=== PATIENT | male | born 1965 | race African-American/Black ===

== ENCOUNTER 2016-07-21 06:45 | Inpatient (IN) ==
[2016-07-21] MEDS ORDERED: SODIUM CHLORIDE 0.9% 1,000 ML IV STA (07:40)
[2016-07-21] MEDS ORDERED: cloNIDine 0.1 MG TABLET PO STA (07:40)
[2016-07-21] MEDS ORDERED: cloNIDine 0.1 MG TABLET ONE (07:53)
[2016-07-21 08:38] LABS: Basophils % 0.2 % (0.0-0.8); Hematocrit 42.3 VOL% (42.0-52.0); Hemoglobin 14.9 GM/DL (14.0-18.0); Immature Granulocytes % 0.5 %; Immature Granulocytes Absolute 0.08 #; Lymphocytes # 0.8 10*3/uL (1.4-4.0); Mean Corpuscular HGB Conc 35.2 GM/DL (32-36); Mean Corpuscular Hemoglobin 27 PG (27-34); Mean Corpuscular Volume 75.1 FL (87-102); Mean Platelet Volume 10.8 FL (9.6-12.0); Monocytes # 0.9 10*3/uL (0.11-0.8); Neutrophils # 13.2 10*3/uL (1.4-7.4); Neutrophils % 88.3 % (38.7-73.9); Platelet Count 278 T/CUMM (130-400); Red Blood Count 5.63 MC/CUMM (3.8-5.5); Red Cell Distribution Width 15.1 % (9.3-17.3); White Blood Count 14.9 T/CUMM (4-12)
--- NOTE | 2016-07-21 08:41 | Emergency Department Note ---
Jeison Echeverria Brittany, am scribing for, and in the presence of, Blas Molina Jr., MD 07:41. Jesse Echeverria Marvin Jr., MD, personally performed the services described in this documentation, ascribed by Tiffanie Mchugh in my presence, and it is both accurate and complete 841 . Arrival - Arrival Chief Complaint: Abdominal / Flank Pain ED Nursing Triage Note: C/O LUQ abd pain/N/V/D. Onset Saturday night. Pt reports fever at home also. 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 Mode of Arrival: Stretcher Limitations: No Limitations, Altered Mental Status (Secondary to lethargy from pain medication ) Source: Patient - History of Present Illness HPI Narrative: This will be limited secondary to pt's lethargic state. This is a 50 y/o black male,who presents to the ED by EMS with c/o abd pain which started at 2300 last night. He localizes the pain to the RUQ and LUQ. He describes the pain as "feeling like a rock." He reports he has had N/V/D with the abd pain. He was Dx with acute pancreatitis earlier today. Pt has no other complaints/pain in the ED at this time. PT has a PMHx of HTN. Pt denies a surgical Hx. Pt denies a family medical Hx. Pt is a current every day smoker, drinks a glass of wine every other month, but denies the use of street drugs. Onset (ago): hour(s) (Started at 2300 last night) Consistency: constant Severity: moderate Quality: other (Feels like a rock ) Allergies/Adverse Reactions: Allergies Allergy/AdvReac Type Severity Reaction Status Date / Time No Known Allergies Allergy Unverified 07/21/16 06:49 Home Medications: Home Medications Medication Instructions Recorded Confirmed Type Unable To Obtain [Unable to Obtain] 07/21/16 07/21/16 History Review of System - Review of System 12 point system: reviewed and no additional remarkable complaints except as stated - Review of System Gastrointestinal: Present: abdominal pain, nausea, vomiting, diarrhea Medical,Surgical,& Family Hx - Medical History Cardio: History of: Hypertension Gastrointestinal: History of: Pancreatitis - Social History Smoking Status: Current every day smoker Frequency of Alcohol Use: Rarely Type of Drug Use: None Exam Physical Examination: General: Well-developed well-nourished, no apparent distress. Patient's blood pressure is high. He is slurring his speech and I think this is secondary to the multiple pain medicines that he was given. His blood pressure is high but he has not taken his blood pressure medicine today. Current blood pressure is 215/111 Head: Normocephalic, atraumatic. Eyes: PERRLA, EOMI. Nose: No obvious acute deformities or discharge. Mouth: No obvious acute injury. Neck: Full range of motion without obvious pain. No midline tender to palpation. Lymphatic: no significant lymphadenopathy noted. Lungs: Clear to auscultation bilaterally, normal and equal air movement bilaterally, no obvious rales or wheezing. Heart: regular rate and rhythm, no obvious mummers. Abdomen: Abdomen is tender to palpation epigastric and left side. Skin: No obivous acute lesions noted Musculoskeletal: No gross deformities. Neurological: No focal findings, cranial nerves II through XII grossly normal. Patient appears to be sedated likely secondary to the medication he was given for pain. Psychiatric: Sedate : Deferred Vital Signs: Vital Signs Temperature 97 F L 07/21/16 07:43 Pulse Rate 87 07/21/16 07:43 Respiratory Rate 22 07/21/16 07:43 Blood Pressure 215/111 07/21/16 07:43 O2 Sat by Pulse Oximetry 96 07/21/16 07:41 Course Course Narrative: Acute pancreatitis, review of records from the other hospital shows an abdominal CT showing severe peripancreatic inflammation suggestive of pancreatitis, amylase 4231 serum glucose 206 creatinine 1.5 total bilirubin 2.7 , alkaline phosphatase 117, ALT 312, AST 291, INR 1.01, WBC 18.6, their diagnosis is acute pancreatitis - Reevaluation(s) Reevaluation #1: Discussed with the hospitalist service. They will come evaluate the patient and admit. I told him previous labs that have been done and the labs that have been ordered. Time: 08:36 Results - Labs Lab Results: I have reviewed the patients labs (Patient labs were reviewed from last night from the other hospital. Current labs are in process. These will be reviewed by the admitting doctors.) Disposition Clinical Impression: Acute pancreatitis, Poorly-controlled hypertension, Vomiting, Hyperglycemia, Elevated liver enzymes Case discussed with: patient Disposition: Still a Patient Condition: Stable Time of Disposition: 08:40
[2016-07-21 09:02] LABS: Albumin 3.7 G/DL (3.4-5.0); Bilirubin,Total 3.4 MG/DL (0.2-1.0); Calcium 8.4 MG/DL (8.5-10.1); Osmolality,Calculated 298.7 MOS/KG (273-304); Potassium 3.5 MMOL/L (3.5-5.1)
--- NOTE | 2016-07-21 09:18 | Hospitalist History & Physical ---
<BenningtonEamon virgen - Last Filed: 07/21/16 14:20> Assessment and Plan - Time spent with patient Time spent with patient: Greater than 30 minutes Time spent discussing smoking cessation with patient: more than 10 minutes (1) Acute pancreatitis Status: Acute Current Visit: Yes (2) Elevated liver enzymes Status: Acute Current Visit: Yes (3) Hyperglycemia Status: Acute Current Visit: Yes (4) Poorly-controlled hypertension Status: Acute Current Visit: Yes History of Present Illness Chief complaint: abdominal pain History of present illness: Mr. Cabral is a 50 year old -[place] male with a history significant for hypertension who reports to the ED as a transfer from [facility] with diffuse abdominal pain since midnight. The patient was seen at [facility] this morning for complaints of abdominal pain. CT there showed inflammation suggestive of pancreatitis. Amylase is greater than 4000 liver enzymes were elevated and white blood count of 18,000. The patient was transferred here for treatment. On admission patient's blood pressure was 240/124. Patient was given clonidine and fluids. It is of note that the patient is slurring his speech slightly. Patient reports the pain "came on all of a sudden" around midnight, and he vomited 2-3 times before arriving at the [facility] ER. On exam, the patient is in moderate pain lying on his right side. He states the pain is primarily in the left lower quadrant and reproducible to palpation. The patient also has reproducible pain in the epigastric region to palpation. He denies alcohol use and does not report a history of hyperlipidemia or hypertriglyceridemia. Patient states that he has never had any gallbladder issues. Patient denies chest pain, shortness of breath, headache. The patient is followed by nurse practitioner Heena Sainz in [place] for his hypertension. He reports that he takes atenolol 200 mg daily, lisinopril 40 mg daily, hydrochlorothiazide 25 mg daily, low-dose aspirin , Flomax for BPH. The patient will be admitted to the hospital medicine team for further evaluation and treatment. Home Medications Medication Instructions Recorded Confirmed Type Aspirin [Ecotrin] 81 mg PO DAILY 07/21/16 07/21/16 History Atenolol [Tenormin] 200 mg PO DAILY 07/21/16 07/21/16 History Lisinopril [Zestril] 40 mg PO DAILY 07/21/16 07/21/16 History Tamsulosin [Flomax] 0.4 mg PO DAILY 07/21/16 07/21/16 History hydroCHLOROthiazide 25 mg PO DAILY 07/21/16 07/21/16 History [Hydrochlorothiazide] Allergies Allergy/AdvReac Type Severity Reaction Status Date / Time No Known Allergies Allergy Unverified 07/21/16 06:49 Medical,Surgical,& Family Hx - Medical History Cardio: History of: Hypertension Genitourinary: History of: Prostate Problems Gastrointestinal: History of: Pancreatitis - Social History Smoking Status: Current every day smoker Frequency of Alcohol Use: Rarely Type of Drug Use: None - Constitutional Constitutional: Absent: daytime sleepiness, headache(s), stops breathing during sleep, weakness - EENT Eyes: Absent: blurry vision, loss of vision Ears: Absent: decreased hearing, ear pain Nose, mouth and throat: Absent: dysphagia, epistaxis, headache(s), neck pain, sore throat - Cardiovascular Cardiovascular: Absent: chest pain at rest, dyspnea, edema, lightheadedness, palpitations - Respiratory Respiratory: Absent: cough, dyspnea, hemoptysis, wheezing - Gastrointestinal Gastrointestinal: Present: abdominal pain, nausea, vomiting. Absent: constipation - Genitourinary Genitourinary: Absent: difficulty urinating, flank pain - Neurological Neurological: Present: abnormal speech (slurred speech). Absent: abnormal gait - Psychiatric Psychiatric: Absent: anxiety, confusion - Endocrine Endocrine: Absent: cold intolerance, fatigue, polyuria - Hematologic/Lymphatic Hematologic/Lymphatic: Absent: easy bleeding, easy bruising Exam - Constitutional Vitals: Period Temp Pulse Resp BP Sys/Guaman Pulse Ox Last 24 Hr 97 F-97.0 F 87-91 22-22 215-244/111-124 94-96 Exam: General appearance: normal weight, no acute distress - Head Head exam: Present: normocephalic, atraumatic - Eye Eye exam: Present: EOMI. Absent: conjunctival injection, nystagmus Pupils: Present: BENSON, normal accommodation - ENT ENT exam: Present: normal exam, normal external ear exam - Neck Neck exam: Present: normal inspection. Absent: lymphadenopathy, tenderness, thyromegaly - Respiratory Respiratory exam: Present: clear to auscultation bilaterally. Absent: rales, rhonchi, wheezes - Cardiovascular Cardiovascular exam: Present: regular rate and rhythm. Absent: carotid bruit, gallop, rubs - GI/Abdominal GI/Abdominal exam: Present: normal bowel sounds, epigastric tenderness to palpation, LLQ tenderness to palpation Absent: ascites, distended, mass - Extremities Exam Extremities exam: Present: normal inspection, normal capillary refill. Absent: edema - Back Exam Back exam: Absent: CVA tenderness (L), CVA tenderness (R) - Neurological Exam Neurological exam: Present: alert, oriented X3 - Psychiatric Psychiatric exam: Present: normal affect, normal mood - Skin Skin exam: Present: normal color, warm, dry Results - Labs CBC & BMP: 07/21/16 08:35 07/21/16 08:35 Lab Results: I have reviewed the past 24 hour labs <Jaimee Dillard - Last Filed: 07/21/16 14:58> Assessment and Plan (1) Acute pancreatitis Status: Acute Assessment and plan: hold thiazide and lipid profile in am, morphine 2 mg IV, zofran IV Current Visit: Yes (2) Poorly-controlled hypertension Status: Acute Assessment and plan: cardene drip IV Current Visit: Yes (3) Vomiting Status: Acute Assessment and plan: prn zofran Current Visit: Yes (4) Hyperglycemia Status: Acute Assessment and plan: lantus 15 units, hgb a1c, diabetic education Current Visit: Yes (5) Elevated liver enzymes Status: Acute Assessment and plan: due to pancreatitis will monitor Current Visit: Yes History of Present Illness History of present illness: Mr. Cabral is a 50 year old male seen and examined. History and physical reviewed and edited. Spoke with Dr Contreras as I was concerned about gallstone pancreatitis and ordered a stat ct without contrast. Dr. Contreras saw him and reviewed his ct and assured me this was just bad pancreatitis due to the thiazide he was on. While check his lipid profile in am. Medical,Surgical,& Family Hx - Surgical History Additional Surgical History: none - Family History Additional Family History: healthy - Social History Marital Status: Single Lives With:: Alone Functional capacity: independent ambulation Exam - Constitutional Vitals: Period Temp Pulse Resp BP Sys/Guaman Pulse Ox Last 24 Hr 98.7 F 83-112 22-25 169-238/101-133 93-98 Results - Labs CBC & BMP: 07/21/16 08:35 07/21/16 08:35 - Diagnostic Findings Procedure: CT Abdomen and Pelvis: report reviewed by me (pancreatitis, no dilation of bile duct )
[2016-07-21] MEDS ORDERED: MORPHINE 2 MG/1 ML SYRINGE IV PRN (09:58)
[2016-07-21] MEDS ORDERED: ONDANSETRON 4 MG/2 ML VIAL IV PRN (09:58)
[2016-07-21] MEDS ORDERED: SODIUM CHLORIDE 0.9% 1,000 ML IV SCH (10:00)
[2016-07-21 10:28] LABS: Triglycerides 63 MG/DL (2-150)
[2016-07-21 11:13] LABS: Lactic Acid 4.5 MMOL/L (0.4-2.0)
[2016-07-21] MEDS ORDERED: NICARDIPINE IV SCH (11:32)
[2016-07-21] MEDS ORDERED: niCARdipine 25 MG/10 ML VIAL IV ONE (11:55)
[2016-07-21] MEDS: SODIUM CHLORIDE 0.45% 1,000 ML IV SCH ×2 (12:19→19:18)
--- NOTE | 2016-07-21 12:27 | Gastrointestinal Consult Note ---
Assessment and Plan - Time spent with patient Time spent with patient: Greater than 30 minutes (1) Acute pancreatitis Status: Acute Current Visit: Yes (2) Elevated liver enzymes Status: Acute Current Visit: Yes (3) Other specified counseling Status: Acute Current Visit: Yes History of Present Illness History of present illness: Mr. Cabral is a 50 year old male Home Medications Medication Instructions Recorded Confirmed Type Aspirin [Ecotrin] 81 mg PO DAILY 07/21/16 07/21/16 History Atenolol [Tenormin] 200 mg PO DAILY 07/21/16 07/21/16 History Lisinopril [Zestril] 40 mg PO DAILY 07/21/16 07/21/16 History Tamsulosin [Flomax] 0.4 mg PO DAILY 07/21/16 07/21/16 History hydroCHLOROthiazide 25 mg PO DAILY 07/21/16 07/21/16 History [Hydrochlorothiazide] Allergies Allergy/AdvReac Type Severity Reaction Status Date / Time No Known Allergies Allergy Unverified 07/21/16 06:49 Medical,Surgical,& Family Hx - Medical History Cardio: History of: Hypertension Genitourinary: History of: Prostate Problems Gastrointestinal: History of: Pancreatitis - Social History Smoking Status: Current every day smoker Frequency of Alcohol Use: Rarely Type of Drug Use: None Results - Labs CBC & BMP: 07/21/16 08:35 07/21/16 08:35 Note Addendum: PLEASE NOTE -- automatic citation of patient information is unavoidable in this electronic note. I have made a reasonable effort to review the information cited , but it is not a part of my evaluation, impression, or recommendation unless specifically discussed in the dictated text that follows. As well, voice recognition software was used in the creation of this clinical note. Reasonable effort was made to identify and correct gross errors. Despite proofreading, errors in design center consultant may be present, including nonsense verbiage at times. If you encounter such an error, please contact me at [phone] for discussion and correction. -- Diane Chief complaint: abdominal pain History of present illness: This is a new patient, a 50-year-old male seen by consultation for evaluation of suspected biliary pancreatitis. The patient is admitted to the hospitalist service under the care of Dr. Dillard with a primary diagnosis of acute pancreatitis. Patient was brought to our hospital by ambulance from [facility] overnight with a primary complaint of severe diffuse abdominal pain since late last evening. Initial diagnosis of pancreatitis was made with elevated amylase, lipase, and liver associated enzymes. As well, the patient's blood pressure has been difficult to control. He reports subacute onset of abdominal pain over two days, primarily LLQ but also involving epigastrium. He notes no EtOH or other substance abuse, no med changes, no dietary changes, no trauma, no history of familial tryglyceridemia or familial pancreatitis, and no recent infection. He reports no prior history of pancreatitis. Since admission he has been treated appropriately with bowel reset, resuscitation, and analgesia and reports minimal improvement in symptoms. He is comfortable enough to sleep currently. Patient denies fever, chills, night sweats, rigors, headache, dizziness, neck pain, visual changes, redness of the eyes, dysphagia, odynophagia, difficulty chewing, chest pain, shortness of breath, weight loss, regurgitation, hematemesis, hematochezia, melena, proctalgia, constipation, change in bowel pattern generally, dysuria, skin changes, temperature regulation issues, flushing, easy bleeding/bruising, musculoskeletal pain, mental status change, numbness/weakness in the extremities, yellowing of the eyes/skin, cutaneous eruptions, allergies to food or drug, family history of gastrointestinal cancer and colon polyps, and other complaints in general. Review of systems: 12 point review of systems was negative except as documented above. Outpatient medications: atenolol, or hydrochlorothiazide, lisinopril, aspirin, Flomax Inpatient medications: Meropenam, 1/2NS infusion, nifedipine drip, Zofran, Protonix Past Medical History: hypertension, prostate problems, pancreatitis Social history: positive tobacco. Rare alcohol Family history: [No gastrointestinal cancers] Physical examination: Vital Signs: Current vital signs reviewed and documented above. General Appearance: Lying in bed, comfortable, without distress. Head: Normocephalic. Neck: Palpation of the neck revealed no abnormalities. Eyes: No scleral icterus. No scleral injection. No conjunctival pallor. Oral Cavity: Odor of breath was normal. No drooling was observed. Lips showed no abnormalities. Floor of the mouth showed no abnormalities. Pharynx: Oropharynx was normal. Lungs: Respiration rhythm and depth was normal. Cardiovascular: Heart rate and rhythm were normal. No murmurs were appreciated. Abdomen: Abdomen was not distended. Abdominal palpation revealed mimimal tenderness and no hepatosplenomegaly. Ascites was not discovered. Abdominal auscultation revealed positive bowel sounds. Musculoskeletal System: Musculoskeletal system was grossly normal. Neurological: Level of consciousness was normal. Speech was normal. Skin: General appearance was normal. Color and pigmentation were normal. No skin lesions. Laboratory: white blood count 14.9, hemoglobin 14 point, hematocrit 42.3, platelets 278, ALT 286, AST 235, total bilirubin 3.4, alkaline phosphatase 114, lactic acid 4.5, albumin 3.7, lipase 6600, triglyceride 63, BUN 14, creatinine 1.6 Radiology: CT scan taken at outside hospital reveals extensive inflammatory change involving the pancreas without clear pancreatic ductal dilation, normal appearing liver, normal appearing gallbladder, and normal appearing intra-and extrahepatic bile ducts Impressions: 1. Acute pancreatitis, interstitial edematous type, mild/moderate -- the differential etiology includes medication or other unidentified substance, biliary obstruction, surreptitious alcohol, anatomic anomaly, and previously unidentified genetic predisposition. The patient does have elevated bilirubin and liver associated enzymes but is only at intermediate risk for choledocholithiasis with current findings. More likely, hyperbilirubinemia and transaminitis is a consequence of mod/severe pancreatic inflammation. At present there is not evidence of pancreatic necrosis or clear evidence of organ failure though SCr is elevated. I recommend aggressive volume resuscitation, pain control as indicated, and complete bowel rest. Antibiotic is at your discretion. ERCP is not indicated at present. 2. Elevated liver associated enzymes -- likely related to underlying pancreatitis. No clear evidence of cholelithiasis or choledocholithiasis at present. Continue to monitor as pancreatitis progresses. 2. Other specified counseling: The patient was seen for [greater than 30 minutes]. The patient was counseled for greater than 50% of this time regarding differential diagnosis, likely diagnosis, diagnostic and therapeutic alternatives, risks/benefits/alternatives of medications and procedures, and plan of care generally. The patient expressed understanding and wishes to proceed. Recommendations: -- aggressive resuscitation -- analgesia as indicated -- complete bowel rest -- antibiotic at your discretion -- minimize medications to the greatest extent possible with particular attention to hydrochlorothiazide -- consider contrast enhanced CT if patient does not improve clinically -- monitor liver associated enzymes -- ERCP is not indicated at present -- thank you for this consultation. We will follow with you.
--- NOTE | 2016-07-21 13:11 | CT Report ---
History: Gallstone pancreatitis Date: 07/21/2016 Study: CT abdomen and pelvis without contrast Comparison exam: Outside CT from [facility] Technique: Spiral CT sections were obtained from the lung bases to the pubic symphysis without contrast. Total DLP measures 1495.8 mGy*cm. CT abdomen: There is increasing strandy atelectatic change in the lower lobes. There is no evidence of pneumoperitoneum. There is diffuse pancreatic enlargement with strandy and hazy inflammatory change in the peripancreatic fat. There is some moderately increased free fluid in the right and left anterior pararenal spaces with extension of fluid into either paracolic gutter. There is no pseudocyst. The liver, bile ducts, spleen, adrenal glands, and kidneys are grossly unremarkable in noncontrast CT appearance. There is mild gallbladder wall thickening. There is no gross calcific density gallstone. There is no aneurysm of the moderately calcified abdominal aorta. The appendix is normal. There is no cathleen bowel obstruction. There is a small periumbilical hernia containing fat. There is degenerative disc disease at L4-L5 and L5-S1 with vacuum disc phenomena. CT pelvis: There is no pelvic soft tissue mass or abnormal pelvic fluid. There is a small left inguinal hernia containing only fat. Impression: Acute pancreatitis with worsening changes compared to the previous study from earlier 07/21/2016 Nonspecific gallbladder wall thickening, though no cathleen calcific density gallstones PROCEDURE INTERPRETED AT [facility] DEPARTMENT OF RADIOLOGY Final Report Signed by: Dr. Gricelda Kirby
[2016-07-21] MEDS: MEROPENEM 1,000 MG in SODIUM CHLORIDE 0.9% 100 ML IV SCH ×2 (13:57→20:04)
[2016-07-21] MEDS: niCARdipine INJ 50 MG in SODIUM CHLORIDE 0.9% 480 ML IV SCH ×3 (14:19→22:43)
[2016-07-21 14:33] LABS: Barbiturates Screen,Urine Negative (Negative); Benzodiazepines Screen,Urine Negative (Negative); Cannabinoid Screen,Urine Negative (Negative); Opiate Screen,Urine Positive (Negative); Phencyclidine Screen,Urine Negative (Negative)
[2016-07-21] MEDS: INSULIN GLARGINE 100 UNIT/ML SUBCUT SCH (16:02)
[2016-07-21] MEDS: INSULIN REGULAR 100 UNIT/ML SUBCUT SCH (21:45)
[2016-07-22] MEDS: SODIUM CHLORIDE 0.45% 1,000 ML IV SCH ×5 (02:46→20:53)
[2016-07-22] MEDS: MEROPENEM 1,000 MG in SODIUM CHLORIDE 0.9% 100 ML IV SCH ×3 (04:36→21:06)
[2016-07-22 04:41] LABS: Basophils % 0.1 % (0.0-0.8); Hematocrit 43.5 VOL% (42.0-52.0); Hemoglobin 15.3 GM/DL (14.0-18.0); Immature Granulocytes % 0.7 %; Immature Granulocytes Absolute 0.16 #; Lymphocytes # 1.4 10*3/uL (1.4-4.0); Lymphocytes % 6.2 % (21.2-54.2); Mean Corpuscular HGB Conc 35.2 GM/DL (32-36); Mean Corpuscular Hemoglobin 26 PG (27-34); Mean Corpuscular Volume 74.2 FL (87-102); Mean Platelet Volume 11.2 FL (9.6-12.0); Monocytes # 1.6 10*3/uL (0.11-0.8); Monocytes % 6.8 % (1.7-12.7); Neutrophils # 19.5 10*3/uL (1.4-7.4); Neutrophils % 86.2 % (38.7-73.9); Platelet Count 236 T/CUMM (130-400); Red Blood Count 5.86 MC/CUMM (3.8-5.5); White Blood Count 22.7 T/CUMM (4-12)
[2016-07-22 05:13] LABS: Albumin 3.3 G/DL (3.4-5.0); Bilirubin,Total 5.9 MG/DL (0.2-1.0); Calcium 7.6 MG/DL (8.5-10.1); Osmolality,Calculated 300.8 MOS/KG (273-304); Potassium 4.5 MMOL/L (3.5-5.1); Total Protein 6.2 G/DL (6.4-8.3)
[2016-07-22 06:11] LABS: Risk Ratio 3.37
[2016-07-22 06:53] LABS: Band Neutrophils 1 % (0-10); Hypochromasia 1+; Lymphocytes 7 % (20-55); Platelet Estimate Adequate; Segmented Neutrophils 82 % (50-85); Total Cells Counted 100
[2016-07-22] MEDS: INSULIN REGULAR 100 UNIT/ML SUBCUT SCH ×6 (07:19→21:06)
--- NOTE | 2016-07-22 08:02 | Gastrointestinal Progress Note ---
Assessment and Plan - Time spent with patient Time spent with patient: Greater than 30 minutes (1) Acute pancreatitis Status: Acute Current Visit: Yes (2) Elevated liver enzymes Status: Acute Current Visit: Yes (3) Other specified counseling Status: Acute Current Visit: Yes Exam (Progress Note) - Constitutional Vitals: Period Temp Pulse Resp BP Sys/Guaman Pulse Ox Last 24 Hr 97.1 F-98.7 F 83-115 20-32 114-238/43-137 90-98 Results - Labs CBC & BMP: 07/22/16 04:17 07/22/16 04:17 Note Addendum: PLEASE NOTE -- automatic citation of patient information is unavoidable in this electronic note. I have made a reasonable effort to review the information cited , but it is not a part of my evaluation, impression, or recommendation unless specifically discussed in the dictated text that follows. As well, voice recognition software was used in the creation of this clinical note. Reasonable effort was made to identify and correct gross errors. Despite proofreading, errors in radio journalist may be present, including nonsense verbiage at times. If you encounter such an error, please contact me at for discussion and correction. -- Diane Chief complaint: abdominal pain History of present illness: the patient is a 50-year-old male seen for follow- up of acute pancreatitis. He reports feeling some better overnight. He is not having abdominal pain at present and has not required pain medication at all overnight. He is taking some iced chips because his mouth is dry but has not developed an appetite yet. Review of systems: 12 point review of systems was negative except as documented above. Inpatient medications: Lantus, Meropenem, morphine sulfate, nicardipine, Zofran , Protonix, 1/2NS infusion Physical examination: Vital Signs: Current vital signs reviewed and documented above. General Appearance: the patient is lying in bed, comfortable, and in no acute distress. Head: Normocephalic. Neck: Palpation of the neck revealed no abnormalities. Eyes: Positive scleral icterus. No scleral injection. No conjunctival pallor. Oral Cavity: Odor of breath was normal. No drooling was observed. Lips showed no abnormalities. Floor of the mouth showed no abnormalities. Pharynx: Oropharynx was normal. Lungs: Respiration rhythm and depth was normal. Cardiovascular: Heart rate and rhythm were normal. No murmurs were appreciated. Abdomen: abdomen was not distended. Abdominal palpation revealed no tenderness and no hepatosplenomegaly. Ascites was not discovered. Abdominal auscultation revealed positive bowel sounds. Musculoskeletal System: Musculoskeletal system was grossly normal. Neurological: level of consciousness was normal. Speech was normal. Skin: General appearance was normal. Color and pigmentation were normal. No skin lesions. Laboratory: white blood count 22.7, hemoglobin 15.3, hematocrit 43.5, platelets 236, ALT 200, AST 120, total bilirubin 5.9, alkaline phosphatase 107, albumin 3.3, lipase 4800 Radiology: CT scan taken at our institution confirms evidence of acute pancreatitis with no clear evidence of cholelithiasis or choledocholithiasis Impressions: 1. Acute pancreatitis -- transaminases and lipase have improved overnight but bilirubin is climbing. This is consistent with acute insults and most likely related to significant inflammatory change at the head of the pancreas. There is not clear radiologic evidence of choledocholithiasis and ERCP is not indicated at present. I recommend a right upper quadrant ultrasound to ensure no evidence of radio Lucent stones in the gallbladder or common bile duct. Otherwise, continued supportive care is most reasonable. 2. Elevated liver associated enzymes -- likely related to underlying pancreatitis. No clear evidence of cholelithiasis or choledocholithiasis at present. I recommend a right upper quadrant ultrasound as discussed above. 3. Other specified counseling: The patient was seen for greater than 30 minutes. The patient was counseled for greater than 50% of this time regarding differential diagnosis, likely diagnosis, diagnostic and therapeutic alternatives, risks/benefits/alternatives of medications and procedures, and plan of care generally. The patient expressed understanding and wishes to proceed. Recommendations: -- aggressive resuscitation -- analgesia as indicated -- complete bowel rest -- antibiotic at your discretion -- minimize medications to the greatest extent possible with particular attention to hydrochlorothiazide -- right upper quadrant ultrasound -- monitor liver associated enzymes -- ERCP is not indicated at present -- thank you for this consultation. Dr. Kirby will assume G.I. care for this patient tomorrow.
[2016-07-22] MEDS: PANTOPRAZOLE 40 MG VIAL IV SCH (08:45)
[2016-07-22] MEDS: INSULIN GLARGINE 100 UNIT/ML SUBCUT SCH (08:46)
--- NOTE | 2016-07-22 09:57 | Ultrasound Report ---
History: Acute pancreatitis. Elevated bilirubin level Date: 07/22/2016 Study: Gallbladder ultrasound Comparison exam: No previous Real-time ultrasound images are captured and archived. Numerous highly echogenic foci with posterior acoustic shadowing compatible with gallstones fill the lumen of the gallbladder. There is gallbladder wall thickening at 4 mm. The common bile duct is ectatic at 8 mm. No choledochal stone is seen, though the distal common bile duct and head of the pancreas are largely obscured by bowel gas. There is no focal hepatic mass. The right kidney measures 10.3 cm length and is otherwise normal. Impression: Cholelithiasis. Ectasia of the common bile duct. No choledochal stone is seen, though the distal common bile duct and head of the pancreas are obscured by bowel gas. PROCEDURE INTERPRETED AT [facility] DEPARTMENT OF RADIOLOGY Final Report Signed by: Dr. Gricelda Kirby
[2016-07-22] MEDS: CARVEDILOL 25 MG TABLET PO SCH ×2 (10:35→16:35)
[2016-07-22] MEDS: niCARdipine INJ 50 MG in SODIUM CHLORIDE 0.9% 480 ML IV SCH ×2 (11:56→19:19)
--- NOTE | 2016-07-22 12:37 | Hospitalist Progress Note ---
Assessment and Plan (1) Acute pancreatitis Status: Acute Assessment and plan: hold thiazide, lipid profile shows a normal triglyceride, morphine 2 mg IV, zofran IV, clear liquids today Current Visit: Yes (2) Poorly-controlled hypertension Status: Acute Assessment and plan: cardene drip IV off, Coreg 25 mg p.o. twice daily Current Visit: Yes (3) Vomiting Status: Acute Assessment and plan: Resolved prn zofran Current Visit: Yes (4) Hyperglycemia Status: Acute Assessment and plan: Diabetic education pending, hemoglobin A1c only 5.6, increase insulin. Current Visit: Yes (5) Elevated liver enzymes Status: Acute Assessment and plan: Improving, continue to monitor Current Visit: Yes (6) Ileus Status: Acute Assessment and plan: Most likely due to the pancreatitis. Current Visit: Yes Hospitalist: Subjective Interval history: Patient is feeling better today and really wants to have something to eat. I am to start him on clear liquids. His lipase is better today. I need to start giving him oral blood pressure medicines. His Cardene drip was off when I came in. Exam - Constitutional Vitals: Period Temp Pulse Resp BP Sys/Guaman Pulse Ox Last 24 Hr 97.1 F-98.7 F 102-115 20-38 114-196/43-121 90-94 Exam: Heart Rate-[RRR] Lungs-[CTAB] GI-[diminished soft, tender] Ext-[trace edema] Neuro [Motor 5/5], [alert and oriented times 3] psych [normal mood and affect] General [no acute distress] Results - Labs CBC & BMP: 07/22/16 04:17 07/22/16 04:17 Lab Results: I have reviewed the past 24 hour labs Labs: Urine drug screen positive for opiates. Lipase today is 4820. Blood sugars are still elevated. - Diagnostic Findings Procedure: Ultrasound: report reviewed by me (Gallbladder ultrasound shows cholelithiasis)
[2016-07-23] MEDS: INSULIN REGULAR 100 UNIT/ML SUBCUT SCH ×9 (00:36→23:41)
[2016-07-23] MEDS: SODIUM CHLORIDE 0.45% 1,000 ML IV SCH ×3 (01:56→21:35)
[2016-07-23] MEDS: MEROPENEM 1,000 MG in SODIUM CHLORIDE 0.9% 100 ML IV SCH ×3 (04:00→21:34)
[2016-07-23 05:44] LABS: Basophils # 0.1 10*3/uL (0.0-0.2); Basophils % 0.2 % (0.0-0.8); Hematocrit 43.6 VOL% (42.0-52.0); Hemoglobin 15.3 GM/DL (14.0-18.0); Immature Granulocytes % 1.2 %; Immature Granulocytes Absolute 0.33 #; Lymphocytes # 2.8 10*3/uL (1.4-4.0); Lymphocytes % 10.2 % (21.2-54.2); Mean Corpuscular HGB Conc 35.1 GM/DL (32-36); Mean Corpuscular Hemoglobin 26 PG (27-34); Mean Corpuscular Volume 75.3 FL (87-102); Mean Platelet Volume 11.5 FL (9.6-12.0); Monocytes # 1.8 10*3/uL (0.11-0.8); Monocytes % 6.4 % (1.7-12.7); Neutrophils # 22.8 10*3/uL (1.4-7.4); Platelet Count 257 T/CUMM (130-400); Red Blood Count 5.79 MC/CUMM (3.8-5.5); Red Cell Distribution Width 15.3 % (9.3-17.3); White Blood Count 27.8 T/CUMM (4-12)
[2016-07-23 06:11] LABS: Band Neutrophils 2 % (0-10); Hypochromasia Slight; Lymphocytes 12 % (20-55); Platelet Estimate Adequate; Segmented Neutrophils 84 % (50-85); Total Cells Counted 100
[2016-07-23 06:13] LABS: Albumin 3.3 G/DL (3.4-5.0); Calcium 7.8 MG/DL (8.5-10.1); Osmolality,Calculated 299.1 MOS/KG (273-304); Potassium 4.3 MMOL/L (3.5-5.1); Total Protein 6.6 G/DL (6.4-8.3)
[2016-07-23] MEDS: PANTOPRAZOLE 40 MG VIAL IV SCH (08:16)
[2016-07-23] MEDS: INSULIN GLARGINE 100 UNIT/ML SUBCUT SCH (08:17)
[2016-07-23] MEDS: CARVEDILOL 25 MG TABLET PO SCH ×2 (08:17→16:50)
--- NOTE | 2016-07-23 08:17 | Physician Query Form ---
CLICK EDIT DOCUMENT TO SELECT QUERY ANSWER --> OK --> SIGN Kristan Maguire RN, CCDS Certified Clinical [employer]icer [employer] W) [phone] (f) [phone] [email or web address] PROVIDERS: Make your selection(s) from the choices in EACH section by typing an "x" and enter comments in the comment section. Please use your independent medical judgment in providing your response. This request does not imply that any particular answer is desired or expected. CLINICAL INDICATORS: (Providers should not edit this section) The medical record indicates that the patient was admitted with acute pancreatitis, Respirations of 22 on the 18th (on 2 liters of oxygen per NC), on the respirations of 45 and the oxygen is on 3 liters. If possible, please further clarify the type and acuity of respiratory diagnosis : ACUITY: ( ) Acute ( ) Chronic ( x) Acute on Chronic TYPE: (x ) Respiratory failure with hypoxia (x ) Respiratory failure with hypercapnia ( ) Respiratory Arrest ( ) Postprocedural/postoperative respiratory failure ( ) Respiratory Insufficiency ( ) ARDS (Adult/Acute Respiratory Distress Syndrome) ( ) Other, please specify: ( ) Clinically unable to determine Recognized criteria for respiratory failure PH <7.35 or >7.45 PO2 <60 PCO2 >50 RR >24 O2 Sat <90% on RA or <95% on O2 Use of accessory muscles Unable to speak in full sentences Intubation is not required COMMENTS: Use of terms such as suspected, likely, or probable (associated with a specific diagnosis that is being evaluated, monitored, or treated as if it exists) are acceptable and can be restated in the discharge summary if not ruled out. MTDD
--- NOTE | 2016-07-23 08:18 | Physician Query Form ---
CLICK EDIT DOCUMENT TO SELECT QUERY ANSWER --> OK --> SIGN Kristan Maguire RN, CCDS Certified Clinical Regional Guide W) [phone] (f) [phone] [email or web address] PROVIDERS: Make your selection(s) from the choices in EACH section by typing an "x" and enter comments in the comment section. Please use your independent medical judgment in providing your response. This request does not imply that any particular answer is desired or expected. CLINICAL INDICATORS: (Providers should not edit this section) The medial record indicates that the patient was admitted with acute pancreatitis, Respirations on the : 36-45, Pulse of 99-102, WBC of 27.8#, Lactic Acid of 4.5 on the , and the patient is being treated with IVF's / Pain medicines. Based on the above, could you clarify the appropriate diagnosis, if significant , that supports the above abnormalities and additional evaluation, monitoring, and/or treatment rendered: ( ) Acute pancreatitis without SIR's (x ) Acute pancreatitis with SIR's ( ) Other, please specify: ( ) Clinically unable to determine COMMENTS: Use of terms such as suspected, likely, or probable (associated with a specific diagnosis that is being evaluated, monitored, or treated as if it exists) are acceptable and can be restated in the discharge summary if not ruled out. MTDD
[2016-07-23 08:53] LABS: ABG Base Excess 0.3 MMOL/L (-2.5-2.5); ABG HCO3 21.9 MMOL/L (20-26); ABG Oxygen Saturation 91.6 % (95-100); ABG PCO2 28.3 MM HG (35-48); ABG PH 7.507 (7.35-7.45); ABG PO2 61.4 MM HG (80-95); ABG TCO2 22.8 MMOL/L (23-27)
[2016-07-23] MEDS: hydrALAZINE 20 MG/1 ML VIAL IV PRN (09:08)
--- NOTE | 2016-07-23 10:19 | Hospitalist Progress Note ---
Assessment and Plan (1) Leukocytosis Status: Acute Assessment and plan: 1)acute pancreatitis- lipase coming down, liver enzymes improved also and his vomiting and pain have resolved. His belly remais deistended and tympanic, some flatus. GI has seen him. Gallbladder US shows many gallstones- suspect gallstone pancreatitis. Consider surgery consult when resp status improved. 2)leukocytosis- rising each day since admission, no positive cultures. on merrem. afebrile. 3)HTN- not well controlled. add hydralazine IV prn to his usual orals and see how he does. GIve lasix. 4)resp alkalosis from hyperventilating- chest CT to eval for cause of deviation of trachea- ?mass. could also be due to his aorta. pulmonary consult. R/O PE also. LE doppler. 5)pulmonary edema- lasix, monitor- echo also pending. Current Visit: Yes (2) Tracheal deviation Status: Acute Current Visit: Yes (3) Pulmonary edema cardiac cause Status: Acute Current Visit: Yes (4) Acute pancreatitis Status: Acute Current Visit: Yes (5) Poorly-controlled hypertension Status: Acute Current Visit: Yes (6) Hyperglycemia Status: Acute Current Visit: Yes (7) Elevated liver enzymes Status: Acute Current Visit: Yes (8) Ileus Status: Acute Current Visit: Yes Hospitalist: Subjective Interval history: Mr Cabral is still short of breath. It started about a month ago, particularly id he bent to pick something up. Now it is continuous since admission for pancreatitis. He denies abdominal pain, but does not have appetite and has only had some clears to drink. He has had some flatus, no BM. GI saw him over the weekend. He is hyperventilating, and has a pH of 7.5. trachea deviated on CXR with some infiltrate in bilateral bases and left calf slightly larger than right. He is a smoker but has never been diagnosed with COPD or required inhalers. BP remains elevated- he has been off Cardene for a while. Exam - Constitutional Vitals: Period Temp Pulse Resp BP Sys/Guaman Pulse Ox Last 24 Hr 96.7 F-98.7 F 98-108 26-45 131-197/23-134 90-94 General appearance: mild distress (tachypnic, but otherwise comfortable. Breathes best lying flat), morbidly obese - Head Head exam: Present: normocephalic, atraumatic - Eye Eye exam: Present: EOMI. Absent: scleral icterus - ENT ENT exam: Present: normal oropharynx - Respiratory Respiratory exam: Present: clear to auscultation bilaterally (no wheezes, stridor, rales. quick shallow breaths) - Cardiovascular Cardiovascular exam: Present: regular rate and rhythm, tachycardia - GI/Abdominal GI/Abdominal exam: Present: distended (tympanic), hypoactive bowel sounds. Absent: tenderness - Extremities Exam Extremities exam: Present: edema (1+ at left ankle none on right.) - Neurological Exam Neurological exam: Present: alert, oriented X3 - Psychiatric Psychiatric exam: Present: normal affect - Skin Skin exam: Present: warm, dry Results - Labs CBC & BMP: 07/23/16 05:22 07/23/16 05:22 Lab Results: I have reviewed the past 24 hour labs
--- NOTE | 2016-07-23 10:19 | XRay Report ---
Portable chest Date: 07/23/2016 Clinical history: Soreness of breath Comparison: None Technique: Portable AP sitting chest Findings: The heart is moderately enlarged with prominent pulmonary vasculature. Diffuse parenchymal findings are noted with small bilateral pleural effusions effusions. Deviation of the trachea to the right at the level of the aortic knob. No acute osseous findings are noted. Impression: Moderate cardiomegaly with findings as can be seen with moderate CHF with small pleural effusions. Additional atelectasis/infiltration at the lung base. Deviation of the trachea which could be related to dilatation of the aorta, adenopathy, mediastinal mass, poor inspiration, etc. CT chest with contrast may be helpful for further evaluation as discussed with Dr. Shrestha at 10:15 AM on 07/23/2016. PROCEDURE INTERPRETED AT [facility] DEPARTMENT OF RADIOLOGY Final Report Signed by: Dr. Laly López
--- NOTE | 2016-07-23 11:59 | Pulmonology Consult Note ---
Assessment and Plan (1) Pneumonia of both lower lobes Status: Acute Assessment and plan: CT scan shows air bronchograms and consolidation in both lower lobes consistent with pneumonia. Certainly atelectasis related to his pancreatitis may be playing a part as well. He has small pleural effusions too small to tap. He is on Merrem which should be good for lower lobe pneumonia. Current Visit: Yes (2) Acute pancreatitis Status: Acute Assessment and plan: Defer to GI. Symptoms seem to be a little better. We may be getting a little ahead on fluids. Current Visit: Yes (3) Poorly-controlled hypertension Status: Acute Assessment and plan: Needs additional blood pressure medications. We will add labetalol. Current Visit: Yes (4) Tracheal deviation Status: Acute Assessment and plan: I do not see a mass in his substernal area. He may have some substernal thyroid. Await interpretation from radiologist. Current Visit: Yes History of Present Illness Chief complaint: Shortness of breath History of present illness: Mr. Cabral is a 50 year old male was admitted about 3 days ago after acute onset of abdominal pain. He was found to have pancreatitis. Unclear the etiology may be related to thiazide diuretics. He says he had an occasional glass of wine but not a heavy drinker. He has been somewhat short of breath for about a month is gotten worse and she has been here. His PO2 is 61 on 4 L nasal biprong's PCO2's in the mid 20s. He does have some pain on inspiration and abdominal pain. He is not coughing up much. He has had a CT of the chest showing air bronchograms in both lower lobes probably pneumonia. He is on Merrem at present. There is no history of deep vein thrombosis or any previous pulmonary problems. Home Medications Medication Instructions Recorded Confirmed Type Aspirin [Ecotrin] 81 mg PO DAILY 07/21/16 07/21/16 History Atenolol [Tenormin] 200 mg PO DAILY 07/21/16 07/21/16 History Lisinopril [Zestril] 40 mg PO DAILY 07/21/16 07/21/16 History Tamsulosin [Flomax] 0.4 mg PO DAILY 07/21/16 07/21/16 History hydroCHLOROthiazide 25 mg PO DAILY 07/21/16 07/21/16 History [Hydrochlorothiazide] Allergies Allergy/AdvReac Type Severity Reaction Status Date / Time No Known Allergies Allergy Unverified 07/21/16 06:49 - Cardiovascular Cardiovascular: Present: dyspnea - Respiratory Respiratory: Present: cough, dyspnea, other (Does have a history of snoring and difficulty sleeping) - Gastrointestinal Gastrointestinal: Present: abdominal pain, nausea, vomiting Exam (Pulmonay) H&P - Constitutional Vitals: Period Temp Pulse Resp BP Sys/Guaman Pulse Ox Last 24 Hr 96.7 F-98.7 F 98-108 26-45 131-197/23-134 90-94 Exam: He is afebrile. Blood pressure is about 180/120. Pupils react to light throat clear neck supple no bruits chest reveals some crackles in the bases. Heart rapid rate normal rhythm no murmurs. Abdomen there is diffuse direct tenderness. Decreased bowel sounds. No masses. Extremities no clubbing cyanosis or edema. Calves nontender. Medical,Surgical,& Family Hx - Medical History Cardio: History of: Hypertension Genitourinary: History of: Prostate Problems Gastrointestinal: History of: Pancreatitis - Social History Smoking Status: Current every day smoker Frequency of Alcohol Use: Rarely Type of Drug Use: None Results - Labs CBC & BMP: 07/23/16 05:22 07/23/16 05:22 Lab Results: I have reviewed the past 24 hour labs - Diagnostic Findings Procedure: Chest x-ray: image reviewed by me (Small bilateral pleural effusions. Increased interstitial markings in the bases. Relatively small lung solorio.)
[2016-07-23] MEDS: FUROSEMIDE 40 MG/4 ML VIAL IV SCH (12:06)
[2016-07-23] MEDS: LABETALOL 20 MG/4 ML SYRINGE IV SCH ×3 (12:13→23:44)
--- NOTE | 2016-07-23 12:24 | Gastrointestinal Progress Note ---
Assessment and Plan (1) Acute pancreatitis Status: Acute Assessment and plan: 07/23-abdominal pain slightly improved. Lipase levels trending down. LFTs trending down. Ultrasound findings noted. Findings of pneumonia noted today with pulmonary consult done. Plan an addendum to followed by Dr. Kirby. Current Visit: Yes Gastroenterology - PN: Subj Interval history: CC: Abd pain Pt is seen, up in chair, with some tachypnea noted. He states he just returned from a CT Scan and has increased his abdominal discomfort. Dr Barnett has consulted with patient and he is noted to have pneumonia to both lower lobes. Pt states the abdominal pain does seem to be improved than from onset. He denies any nausea or vomiting at this time. Abdomen is soft, mild tenderness to LUQ. His lipase level is noted to be down today at 2700. His liver enzymes are trending down as well. WBCs elevated at 27.8. He is afebrile at present. Blood pressure noted to be elevated. Gallbladder ultrasound was done on yesterday and noted findings of cholelithiasis with common bile duct at 8 mm. No ductal stones were seen however noted to be obscured by gas. ROS: Denies SOB or chest pain Exam (Progress Note) - Constitutional Vitals: Period Temp Pulse Resp BP Sys/Guaman Pulse Ox Last 24 Hr 96.7 F-98.7 F 98-108 26-45 131-197/23-134 90-94 General appearance: normal weight, no acute distress - Head Head exam: Present: normal inspection, normocephalic - Eye Eye exam: Present: other (Lids and conjunctivae unremarkable). Absent: scleral icterus - ENT ENT exam: Present: normal exam, normal oropharynx - Neck Neck exam: Present: normal inspection - Respiratory Respiratory exam: Present: clear to auscultation bilaterally. Absent: rales, rhonchi, wheezes - Cardiovascular Cardiovascular exam: Present: tachycardia. Absent: diastolic murmur, JVD, systolic murmur - GI/Abdominal GI/Abdominal exam: Present: normal bowel sounds, tenderness, soft. Absent: ascites, distended, mass, organomegaly - Extremities Exam Extremities exam: Present: normal inspection, full ROM - Back Exam Back exam: Present: normal inspection - Neurological Exam Neurological exam: Present: alert, oriented X3 - Psychiatric Psychiatric exam: Present: normal affect, normal mood - Skin Skin exam: Present: normal color, warm, dry Results - Labs CBC & BMP: 07/23/16 05:22 07/23/16 05:22 Lab Results: I have reviewed the past 24 hour labs
--- NOTE | 2016-07-23 12:26 | CT Report ---
History: Shortness of breath. Deviated thoracic aorta. Abnormal chest x-ray Date: 07/23/2016 Study: CT chest with IV contrast with pulmonary embolus technique Comparison exam: No previous chest CT available Spiral CT sections were obtained through the lungs following the IV administration of 80 mL of Omnipaque 350 without immediate complication. Multiplanar reconstruction images are also evaluated. The CT exam was performed using one or more of the following dose reduction techniques: Automated exposure control and adjustment of the mA and/or kV according to patient size. Total DLP measures 906.9 mGy*cm. There is limited opacification of the peripheral pulmonary arterial tree related to IV contrast timing issues which may be multifactorial. There is no saddle or central pulmonary embolus. There is no thoracic aortic aneurysm or dissection. There is deviation of the trachea which is attributed to aortic arch tortuosity. There is no mediastinal mass. There is some mild thyromegaly with borderline substernal extension of the thyroid. There is no mediastinal lymphadenopathy by short axis diameter criteria. There is mild bilateral pleural effusion, right more than left. There is some dense atelectatic change in the dependent portions of the bilateral lower lobes. There is some mild platelike atelectasis in the upper lobes and right middle lobe. There is minor scattered thoracic spondylosis. There is some mild perihepatic and perisplenic ascites where seen. Inflammatory changes are noted in association with the pancreas, partially visualized, in this patient with reported known pancreatitis. Impression: No evidence of central pulmonary embolus. Evaluation of the peripheral pulmonary arterial tree is limited because of IV contrast timing issues. No mediastinal mass or mediastinal lymphadenopathy. Mild substernal extension of the mildly enlarged thyroid gland atelectatic changes of the lungs, more so in the lower lobes. Mild bilateral pleural effusion Upper abdominal ascites. Changes of pancreatitis PROCEDURE INTERPRETED AT [facility] DEPARTMENT OF RADIOLOGY Final Report Signed by: Dr. Gricelda Kirby
[2016-07-23] MEDS: ALBUTEROL/IPRATROPIUM 3 ML NEB RESP TX SCH ×3 (12:37→23:58)
--- NOTE | 2016-07-23 14:43 | Ultrasound Report ---
US venous doppler LE BI Indication: Shortness of breath. Comparison: None. Technique: Grayscale, spectral, and color Doppler interrogation of the bilateral lower extremity veins was performed. Augmentation and compression was performed. Findings: Grayscale, color Doppler, and pulsed Doppler evaluation of the veins of the bilateral lower extremity demonstrate no evidence of deep venous thrombosis. IMPRESSION: No evidence of deep venous thrombosis in the bilateral lower extremity. PROCEDURE INTERPRETED AT [facility] DEPARTMENT OF RADIOLOGY Final Report Signed by: Dr Liborio Kendall
--- NOTE | 2016-07-23 16:11 | ECHO Report ---
Jason Cabral Exam Date: 07/23/2016 14:12 Referring Physician: Technologist: Mikki LYNN Age: 50 Ht (in): Wt (lb): Gender: M Exam Location: [facility] Echo Indications: HTN, Hyperglycemia, pneumonia, pulmonary, edema, obesity BP: / HR: Rhythm: Sinus Technical Quality: Technically difficult study IMPRESSIONS Moderate concentric left ventricular hypertrophy with diastolic dysfunction. Moderately increased left ventricular cavity size. Left ventricular ejection fraction is estimated at 30-35 %. The left atrium is mildly enlarged. Mildly thickened mitral valve with mild mitral regurgitation. Aortic valve sclerosis without stenosis or regurgitation. Trace tricuspid valve regurgitation. MEASUREMENTS (Male / Female) Normal Values 2D ECHO LV Diastolic Diameter PLAX 6.6 cm 4.2 - 5.9 / 3.9 - 5.3 cm LV Systolic Diameter PLAX 4.8 cm LV Fractional Shortening PLAX 27.8 % IVS Diastolic Thickness 1.8 cm 0.6 - 1.0 / 0.6 - 0.9 cm LVPW Diastolic Thickness 1.7 cm 0.6 - 1.0 / 0.6 - 0.9 cm Aortic Root Diameter 2.8 cm LA Systolic Diameter LX 4.4 cm 3.0 - 4.0 / 2.7 - 3.8 cm FINDINGS Left Ventricle Moderately increased left ventricular cavity size. Moderate concentric left ventricular hypertrophy with diastolic dysfunction. Left ventricular ejection fraction is estimated at 30-35 %. Right Ventricle +/-Mildly increased right ventricular size. Right Atrium +/-The right atrium is mildly enlarged. Left Atrium The left atrium is mildly enlarged. Mitral Valve Mildly thickened mitral valve with mild mitral regurgitation. Aortic Valve Aortic valve sclerosis without stenosis or regurgitation. Tricuspid Valve Morphologically normal tricuspid valve. Trace tricuspid valve regurgitation. Pulmonic Valve Morphologically normal pulmonic valve. Pericardium No pericardial effusion. Aorta Normal size aortic root and proximal ascending aorta. Lance Cody MD (Electronically Signed) Final Date: 23 July 2016 16:10
[2016-07-24] MEDS: hydrALAZINE 20 MG/1 ML VIAL IV PRN ×2 (02:37→08:21)
[2016-07-24] MEDS: MEROPENEM 1,000 MG in SODIUM CHLORIDE 0.9% 100 ML IV SCH ×3 (03:26→21:21)
[2016-07-24 05:04] LABS: Basophils % 0.2 % (0.0-0.8); Hematocrit 38.3 VOL% (42.0-52.0); Hemoglobin 13.8 GM/DL (14.0-18.0); Immature Granulocytes % 1.4 %; Immature Granulocytes Absolute 0.35 #; Lymphocytes # 2.6 10*3/uL (1.4-4.0); Lymphocytes % 10.7 % (21.2-54.2); Mean Corpuscular Hemoglobin 26 PG (27-34); Mean Corpuscular Volume 73.2 FL (87-102); Mean Platelet Volume 11.5 FL (9.6-12.0); Monocytes # 1.9 10*3/uL (0.11-0.8); Monocytes % 7.7 % (1.7-12.7); Neutrophils # 19.6 10*3/uL (1.4-7.4); Platelet Count 269 T/CUMM (130-400); Red Blood Count 5.23 MC/CUMM (3.8-5.5); White Blood Count 24.6 T/CUMM (4-12)
[2016-07-24 05:31] LABS: Hypochromasia 1+; Lymphocytes 9 % (20-55); Microcytosis 1+; Platelet Estimate Adequate; Segmented Neutrophils 86 % (50-85); Target Cells Slight; Total Cells Counted 100
[2016-07-24 05:33] LABS: Albumin 2.9 G/DL (3.4-5.0); Calcium 7.8 MG/DL (8.5-10.1); Osmolality,Calculated 291.1 MOS/KG (273-304); Potassium 3.7 MMOL/L (3.5-5.1)
[2016-07-24] MEDS: LABETALOL 20 MG/4 ML SYRINGE IV SCH ×3 (06:14→18:26)
[2016-07-24] MEDS: INSULIN REGULAR 100 UNIT/ML SUBCUT SCH ×7 (06:19→21:24)
--- NOTE | 2016-07-24 06:46 | XRay Report ---
Portable chest Date: 07/24/2016 Clinical history: Bilateral pneumonia Comparison: 07/23/2016 Technique: Portable AP sitting chest Findings: The heart is slightly smaller in size with minimal reduction in the pleural parenchymal findings in the lungs. Less deviation of the trachea to the right at the level of the aortic knob. No acute osseous findings. Impression: The heart is slightly smaller in size with improved pulmonary edema and minimally smaller pleural effusions. Residual dense atelectasis/infiltration in the lower lobes consistent with pneumonia. PROCEDURE INTERPRETED AT [facility] DEPARTMENT OF RADIOLOGY Final Report Signed by: Dr. Laly López
--- NOTE | 2016-07-24 06:48 | Pulmonology Progress Note ---
Pulmonary - PN: Subj Interval history: This 50-year-old man came in with pancreatitis. He has consolidation and atelectasis in both lower lobes. There are small pleural effusions. He feels much better today. Oxygen saturation is improved. Wearing a Ventimask. Will try him on some nasal oxygen today if we can. Exam (Progress Note) - Constitutional Vitals: Period Temp Pulse Resp BP Sys/Guaman Pulse Ox Last 24 Hr 97.1 F-99.4 F 86-116 20-54 134-203/23-134 90-98 Exam: He is alert, vital signs normal except blood pressure still a little high at 160 /100. Pupils react to light. Throat is clear. Neck supple no bruits. Wearing Ventimask. Chest reveals some mild bibasilar rales. Otherwise clear. Heart normal rate rhythm no murmurs. Abdomen remains tender soft he does have some bowel sounds. Extremities no clubbing cyanosis, trace of edema. Results - Labs CBC & BMP: 07/24/16 04:19 07/24/16 04:19 Lab Results: I have reviewed the past 24 hour labs - Diagnostic Findings Procedure: Chest x-ray: image reviewed by me (X-ray little better. Right lower lobe infiltrate and tiny effusions are noted.) Assessment and Plan (1) Pneumonia of both lower lobes Status: Acute Assessment and plan: CT scan shows air bronchograms and consolidation in both lower lobes consistent with pneumonia. Certainly atelectasis related to his pancreatitis may be playing a part as well. He has small pleural effusions too small to tap. He is on Merrem which should be good for lower lobe pneumonia. 07/24/2016 continuing with empiric antibiotics. Current Visit: Yes (2) Acute pancreatitis Status: Acute Assessment and plan: Defer to GI. Symptoms seem to be a little better. We may be getting a little ahead on fluids. 07/24/2016 lipase has come down. Less abdominal pain. Current Visit: Yes (3) Poorly-controlled hypertension Status: Acute Assessment and plan: Needs additional blood pressure medications. We will add labetalol. 07/24/2016 blood pressure looks a little better. Current Visit: Yes (4) Tracheal deviation Status: Acute Assessment and plan: I do not see a mass in his substernal area. He may have some substernal thyroid. Await interpretation from radiologist. 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 Current Visit: Yes
[2016-07-24] MEDS: ALBUTEROL/IPRATROPIUM 3 ML NEB RESP TX SCH ×3 (06:50→20:31)
[2016-07-24] MEDS: FUROSEMIDE 40 MG/4 ML VIAL IV SCH (08:21)
[2016-07-24] MEDS: PANTOPRAZOLE 40 MG VIAL IV SCH (08:21)
[2016-07-24] MEDS: CARVEDILOL 25 MG TABLET PO SCH ×2 (08:22→16:00)
[2016-07-24] MEDS: INSULIN GLARGINE 100 UNIT/ML SUBCUT SCH (08:22)
[2016-07-24] MEDS ORDERED: SIMETHICONE CHEW 125 MG TABLET PO PRN (08:32)
--- NOTE | 2016-07-24 10:01 | Hospitalist Progress Note ---
Assessment and Plan (1) Leukocytosis Status: Acute Assessment and plan: 1)acute pancreatitis- lipase now around 800, adn his symptoms are improved. Likely common duct gallstone passed that caused the pancreatitis. when improved will need cholecystectomy and possibly ERCP if liver enzymes don't come down to normal- they are better each day. calcium corrects when albumin accounted for. 2)bilateral pneumonia- on Merrem since admit. 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 no longer tachypnic. sats good on 2L NC. afebrile. CT did not show PE and LE dopplers neg also. repeat CBC to monitor WBC. 3)HTN- control is adequate but he is requiring IV labetolol and hydralazine routinely. Add norvasc. 4)tracheal deviation due to aorta- no mass on CT chest. 5)LUZ ELENA resolved with hydration- was due to pancreatitis. 6)dispo- transfer to floor. Current Visit: Yes (2) Tracheal deviation Status: Acute Current Visit: Yes (3) Pulmonary edema cardiac cause Status: Acute Current Visit: Yes (4) Acute pancreatitis Status: Acute Current Visit: Yes (5) Poorly-controlled hypertension Status: Acute Current Visit: Yes (6) Hyperglycemia Status: Acute Current Visit: Yes (7) Elevated liver enzymes Status: Acute Current Visit: Yes (8) Ileus Status: Acute Current Visit: Yes Hospitalist: Subjective Interval history: Mr Cabral is feeling much better today. He is less short of breath and was able to rest last night. Denies abdominal pain and has passed some gas but feels there is much more to pass. No nausea or vomiting. No BM. Exam - Constitutional Vitals: Period Temp Pulse Resp BP Sys/Guaman Pulse Ox Last 24 Hr 97.1 F-99.4 F 86-116 20-54 135-203/90-128 90-98 General appearance: no acute distress, morbidly obese - Head Head exam: Present: normocephalic, atraumatic - Eye Eye exam: Present: EOMI. Absent: scleral icterus - Respiratory Respiratory exam: Present: rales (at bases bilaterally). Absent: rhonchi, wheezes - Cardiovascular Cardiovascular exam: Present: regular rate and rhythm - GI/Abdominal GI/Abdominal exam: Present: distended, hypoactive bowel sounds. Absent: tenderness - Extremities Exam Extremities exam: Absent: edema - Neurological Exam Neurological exam: Present: alert, oriented X3, CN II-XII intact. Absent: motor sensory deficit - Psychiatric Psychiatric exam: Present: normal mood - Skin Skin exam: Present: warm, dry Results - Labs CBC & BMP: 07/24/16 04:19 07/24/16 04:19 Lab Results: I have reviewed the past 24 hour labs
[2016-07-24] MEDS: amLODIPine 10 MG TABLET PO SCH (10:18)
--- NOTE | 2016-07-24 10:44 | Gastrointestinal Progress Note ---
Assessment and Plan (1) Acute pancreatitis Status: Acute Assessment and plan: 07/24-abdominal pain improved. Lipase levels and LFTs continue to trend downward. Respiratory status improving. Plan and addendum to follow by Dr. Kirby 07/23-abdominal pain slightly improved. Lipase levels trending down. LFTs trending down. Ultrasound findings noted. Findings of pneumonia noted today with pulmonary consult done. Plan an addendum to followed by Dr. Kirby. Current Visit: Yes Gastroenterology - PN: Subj Interval history: CC: Abd pain Pt is seen, awake and alert sitting up in bed. States that he is feeling better today. He has minimal abdominal pain at present time. Denies any nausea or vomiting. His breathing has improved as well. Afebrile. LFTs are trending down at present time. He is being transferred to the floor today. Abdomen is soft, nontender. WBCs are trending down. Lipase down to 856 today. ROS: Denies SOB or chest pain Exam (Progress Note) - Constitutional Vitals: Period Temp Pulse Resp BP Sys/Guaman Pulse Ox Last 24 Hr 97.1 F-99.4 F 86-116 20-48 135-203/90-123 90-98 General appearance: normal weight, no acute distress - Head Head exam: Present: normal inspection, normocephalic - Eye Eye exam: Present: other (Lids and conjunctivae unremarkable). Absent: scleral icterus - ENT ENT exam: Present: normal exam, normal oropharynx - Neck Neck exam: Present: normal inspection - Respiratory Respiratory exam: Present: clear to auscultation bilaterally. Absent: rales, rhonchi, wheezes - Cardiovascular Cardiovascular exam: Present: regular rate and rhythm. Absent: diastolic murmur , JVD, systolic murmur - GI/Abdominal GI/Abdominal exam: Present: normal bowel sounds, soft. Absent: ascites, distended, mass, organomegaly, tenderness - Extremities Exam Extremities exam: Present: normal inspection, full ROM - Back Exam Back exam: Present: normal inspection - Neurological Exam Neurological exam: Present: alert, oriented X3 - Psychiatric Psychiatric exam: Present: normal affect, normal mood - Skin Skin exam: Present: normal color, warm, dry Results - Labs CBC & BMP: 07/24/16 04:19 07/24/16 04:19 Lab Results: I have reviewed the past 24 hour labs
[2016-07-25] MEDS: INSULIN REGULAR 100 UNIT/ML SUBCUT SCH ×7 (00:25→20:34)
[2016-07-25] MEDS: LABETALOL 20 MG/4 ML SYRINGE IV SCH ×3 (00:32→13:46)
[2016-07-25] MEDS: ALBUTEROL/IPRATROPIUM 3 ML NEB RESP TX SCH ×4 (01:02→20:00)
[2016-07-25] MEDS: MEROPENEM 1,000 MG in SODIUM CHLORIDE 0.9% 100 ML IV SCH ×2 (04:04→11:57)
--- NOTE | 2016-07-25 07:45 | XRay Report ---
Portable chest Date: 07/25/2016 Clinical history: Bilateral pneumonia Comparison: 07/24/2016 Technique: Portable AP sitting chest Findings: The heart is minimally smaller in size with very minimal reduction in the pleural and parenchymal findings at the lung bases. Residual prominent pulmonary vasculature/danika with degenerative changes. Impression: Minimally improved bilateral pneumonia with minimal decrease in the size of the pleural effusions. The heart is minimally smaller in size. PROCEDURE INTERPRETED AT [facility] DEPARTMENT OF RADIOLOGY Final Report Signed by: Dr. Laly López
[2016-07-25 08:21] LABS: Basophils # 0.1 10*3/uL (0.0-0.2); Basophils % 0.2 % (0.0-0.8); Eosinophils % 0.1 % (0.00-10.9); Hematocrit 37.2 VOL% (42.0-52.0); Hemoglobin 13.5 GM/DL (14.0-18.0); Immature Granulocytes % 1.4 %; Immature Granulocytes Absolute 0.33 #; Lymphocytes # 2.5 10*3/uL (1.4-4.0); Lymphocytes % 10.8 % (21.2-54.2); Mean Corpuscular HGB Conc 36.3 GM/DL (32-36); Mean Corpuscular Hemoglobin 27 PG (27-34); Mean Corpuscular Volume 73.4 FL (87-102); Mean Platelet Volume 11.1 FL (9.6-12.0); Monocytes # 2.3 10*3/uL (0.11-0.8); Monocytes % 9.7 % (1.7-12.7); Neutrophils # 18.2 10*3/uL (1.4-7.4); Neutrophils % 77.8 % (38.7-73.9); Platelet Count 294 T/CUMM (130-400); Red Blood Count 5.07 MC/CUMM (3.8-5.5); Red Cell Distribution Width 14.8 % (9.3-17.3); White Blood Count 23.3 T/CUMM (4-12)
[2016-07-25 08:40] LABS: Band Neutrophils 7 % (0-10); Hypochromasia 1+; Lymphocytes 12 % (20-55); Metamyelocytes 1 %; Microcytosis 1+; Platelet Estimate Adequate; Segmented Neutrophils 71 % (50-85); Target Cells Slight; Total Cells Counted 100
[2016-07-25 08:51] LABS: Albumin 2.8 G/DL (3.4-5.0); Bilirubin,Total 1.7 MG/DL (0.2-1.0); Calcium 8.4 MG/DL (8.5-10.1); Osmolality,Calculated 287.4 MOS/KG (273-304); Potassium 3.2 MMOL/L (3.5-5.1)
--- NOTE | 2016-07-25 08:51 | Gastrointestinal Progress Note ---
Assessment and Plan (1) Acute pancreatitis Status: Acute Assessment and plan: 07/25-No changes at present time. Repeat LFT and lipase today. Continue to monitor. Plan and addendum to follow by Dr Kirby. 07/24-abdominal pain improved. Lipase levels and LFTs continue to trend downward. Respiratory status improving. Plan and addendum to follow by Dr. Kirby 07/23-abdominal pain slightly improved. Lipase levels trending down. LFTs trending down. Ultrasound findings noted. Findings of pneumonia noted today with pulmonary consult done. Plan an addendum to followed by Dr. Kiryb. Current Visit: Yes Gastroenterology - PN: Subj Interval history: CC: Pancreatitis Pt is seen awake and alert sitting up in chair. States he is feeling better today. He is breathing a little easier although he becomes SOB with getting up and down to the bathroom. He denies any abdominal pain other than with deep palpation. Denies any nausea or vomiting. States he is is not ready for more than clear liquids and is only taking in minimal amount of this at present time. Afebrile. Abdomen is soft, tender to palpation. Repeat labs pending for this morning regarding LFT and lipase. ROS: Denies SOB or chest pain Exam (Progress Note) - Constitutional Vitals: Period Temp Pulse Resp BP Sys/Guaman Pulse Ox Last 24 Hr 97.9 F-98.6 F 78-106 18-35 121-170/77-117 88-99 General appearance: normal weight, no acute distress - Head Head exam: Present: normal inspection, normocephalic - Eye Eye exam: Present: other (lids and conjunctiva unremarkable). Absent: scleral icterus - ENT ENT exam: Present: normal exam, normal oropharynx - Neck Neck exam: Present: normal inspection - Respiratory Respiratory exam: Present: clear to auscultation bilaterally. Absent: rales, rhonchi, wheezes - Cardiovascular Cardiovascular exam: Present: regular rate and rhythm. Absent: diastolic murmur , JVD, systolic murmur - GI/Abdominal GI/Abdominal exam: Present: normal bowel sounds, tenderness, soft. Absent: ascites, distended, mass, organomegaly - Extremities Exam Extremities exam: Present: normal inspection, full ROM - Back Exam Back exam: Present: normal inspection - Neurological Exam Neurological exam: Present: alert, oriented X3 - Psychiatric Psychiatric exam: Present: normal affect, normal mood - Skin Skin exam: Present: normal color, warm, dry Results - Labs CBC & BMP: 07/25/16 07:58 07/24/16 04:19 Lab Results: I have reviewed the past 24 hour labs
--- NOTE | 2016-07-25 08:53 | Pulmonology Progress Note ---
Pulmonary - PN: Subj Interval history: Patient is a 50-year-old black man that has acute pancreatitis. He has also had bibasilar atelectasis and chest congestion. He has diuresed a little and his weight is down. He still gets a little short of breath at times. His O2 saturation will drop to the low 90s. His blood pressure has been up at times. He says he is having loose stools but his abdominal pain is better. Exam (Progress Note) - Constitutional Vitals: Period Temp Pulse Resp BP Sys/Guaman Pulse Ox Last 24 Hr 97.9 F-98.6 F 78-106 18-35 121-170/77-117 88-99 General appearance: mild distress, over weight - Head Head exam: Present: normal inspection, normocephalic - Eye Eye exam: Present: EOMI. Absent: scleral icterus Pupils: Present: BENSON - ENT ENT exam: Present: normal exam - Neck Neck exam: Present: normal inspection. Absent: lymphadenopathy, thyromegaly - Respiratory Respiratory exam: Present: rales, rhonchi, other (He is moving air okay but has some crackles in the bases) - Cardiovascular Cardiovascular exam: Present: regular rate and rhythm. Absent: gallop, systolic murmur - GI/Abdominal GI/Abdominal exam: Present: distended, hypoactive bowel sounds, soft. Absent: guarding, tenderness, rebound - Extremities Exam Extremities exam: Absent: calf tenderness, edema - Neurological Exam Neurological exam: Present: alert, oriented X3, CN II-XII intact - Psychiatric Psychiatric exam: Present: normal affect - Skin Skin exam: Present: warm, dry Results - Labs CBC & BMP: 07/25/16 07:58 07/25/16 07:58 Assessment and Plan (1) Acute pancreatitis Status: Acute Assessment and plan: Patient says his abdominal pain is getting better although he is having some loose stools. GI is evaluating. Current Visit: Yes (2) Poorly-controlled hypertension Status: Acute Assessment and plan: His blood pressure is labile at times but looks acceptable at present. Current Visit: Yes (3) Pulmonary edema cardiac cause Status: Acute Assessment and plan: Patient was felt to be a little overloaded and is diuresing fairly well. Current Visit: Yes (4) Pneumonia of both lower lobes Status: Acute Assessment and plan: He does have mild bibasilar infiltrates and is getting antibiotics and respiratory therapy. He seems to be breathing comfortably at present Current Visit: Yes
[2016-07-25 09:07] LABS: Albumin 2.8 G/DL (3.4-5.0); Bilirubin,Total 1.7 MG/DL (0.2-1.0); Calcium 8.4 MG/DL (8.5-10.1); Osmolality,Calculated 291.1 MOS/KG (273-304); Potassium 3.3 MMOL/L (3.5-5.1); Total Protein 6.9 G/DL (6.4-8.3)
[2016-07-25] MEDS: INSULIN GLARGINE 100 UNIT/ML SUBCUT SCH (09:08)
[2016-07-25] MEDS: POTASSIUM CHLORIDE 20 MEQ TABLET PO SCH ×2 (09:08→20:32)
[2016-07-25] MEDS: amLODIPine 10 MG TABLET PO SCH (09:09)
[2016-07-25] MEDS: PANTOPRAZOLE 40 MG VIAL IV SCH (09:09)
[2016-07-25] MEDS: CARVEDILOL 25 MG TABLET PO SCH (09:09)
[2016-07-25] MEDS: FUROSEMIDE 40 MG/4 ML VIAL IV SCH (09:09)
--- NOTE | 2016-07-25 12:12 | Hospitalist Progress Note ---
Assessment and Plan (1) Leukocytosis Status: Acute Assessment and plan: acute pancreatitis- lipase normalized, and liver enzymes also back to normal. Will need cholecystectomy evantually. 2)bilateral pneumonia- change MErrem since he developed diarrhea, he is continuing to improve from pneumonia standpoint. wean O2 as tolerated. Wbc coming down slowly. 3) HTN- improved with NORvasc 4)LUZ ELENA- resolved 5)tracheal deviation- due to aortic knob, no mass on CT. 6)new diabetes with occurrence of pancreatitis- on lantus and scheduled regular and SSI. Stop scheduled regular insulin, cont SSI. HOpefully he won't need insulin group home. Current Visit: Yes (2) Tracheal deviation Status: Acute Current Visit: Yes (3) Pulmonary edema cardiac cause Status: Acute Current Visit: Yes (4) Acute pancreatitis Status: Acute Current Visit: Yes (5) Poorly-controlled hypertension Status: Acute Current Visit: Yes (6) Hyperglycemia Status: Acute Current Visit: Yes (7) Elevated liver enzymes Status: Acute Current Visit: Yes (8) Ileus Status: Acute Current Visit: Yes Hospitalist: Subjective Interval history: Mr Cabral has diarrhea since yesterday. He is resting comfortably but gets increasingly short of breath when he moves around. Exam - Constitutional Vitals: Period Temp Pulse Resp BP Sys/Guaman Pulse Ox Last 24 Hr 97.9 F-98.6 F 78-110 18-30 121-164/77-99 88-99 General appearance: no acute distress, morbidly obese - Head Head exam: Present: normocephalic, atraumatic - Eye Eye exam: Present: EOMI. Absent: scleral icterus - Respiratory Respiratory exam: Present: rales. Absent: wheezes - Cardiovascular Cardiovascular exam: Present: regular rate and rhythm - GI/Abdominal GI/Abdominal exam: Present: normal bowel sounds, soft. Absent: tenderness - Extremities Exam Extremities exam: Absent: edema - Neurological Exam Neurological exam: Present: alert, oriented X3 - Skin Skin exam: Present: warm, dry Results - Labs CBC & BMP: 07/25/16 07:58 07/25/16 07:58
[2016-07-25] MEDS: AZITHROMYCIN INJ 500 MG in SODIUM CHLORIDE 0.9% 250 ML IV SCH (15:54)
[2016-07-25] MEDS: LABETALOL 200 MG TABLET PO SCH ×2 (15:54→20:32)
[2016-07-25] MEDS ORDERED: VANCOMYCIN INJ 3,000 MG in SODIUM CHLORIDE 0.9% 500 ML IV ONE (16:00)
[2016-07-26] MEDS: ALBUTEROL/IPRATROPIUM 3 ML NEB RESP TX SCH ×4 (00:31→19:07)
[2016-07-26] MEDS: VANCOMYCIN INJ 2,000 MG in SODIUM CHLORIDE 0.9% 500 ML IV SCH ×2 (04:36→18:07)
[2016-07-26 06:31] LABS: Basophils % 0.2 % (0.0-0.8); Eosinophils # 0.1 10*3/uL (0.0-0.87); Eosinophils % 0.4 % (0.00-10.9); Hematocrit 33.8 VOL% (42.0-52.0); Hemoglobin 12.1 GM/DL (14.0-18.0); Immature Granulocytes % 3.8 %; Immature Granulocytes Absolute 0.86 #; Lymphocytes # 2.8 10*3/uL (1.4-4.0); Lymphocytes % 12.4 % (21.2-54.2); Mean Corpuscular HGB Conc 35.8 GM/DL (32-36); Mean Corpuscular Hemoglobin 26 PG (27-34); Mean Corpuscular Volume 73.8 FL (87-102); Mean Platelet Volume 11.7 FL (9.6-12.0); Monocytes # 2.7 10*3/uL (0.11-0.8); Monocytes % 11.9 % (1.7-12.7); Neutrophils # 16.2 10*3/uL (1.4-7.4); Neutrophils % 71.3 % (38.7-73.9); Platelet Count 286 T/CUMM (130-400); Red Blood Count 4.58 MC/CUMM (3.8-5.5); Red Cell Distribution Width 14.8 % (9.3-17.3); White Blood Count 22.7 T/CUMM (4-12)
[2016-07-26 06:53] LABS: Band Neutrophils 4 % (0-10); Hypochromasia 1+; Lymphocytes 10 % (20-55); Microcytosis 1+; Platelet Estimate Adequate; Segmented Neutrophils 75 % (50-85); Total Cells Counted 100
[2016-07-26 07:06] LABS: Albumin 2.5 G/DL (3.4-5.0); Bilirubin,Total 1.5 MG/DL (0.2-1.0); Osmolality,Calculated 285.4 MOS/KG (273-304); Potassium 3.4 MMOL/L (3.5-5.1); Total Protein 5.7 G/DL (6.4-8.3)
--- NOTE | 2016-07-26 07:58 | Pulmonology Progress Note ---
Pulmonary - PN: Subj Interval history: This 50-year-old man came in with pancreatitis. He has consolidation and atelectasis in both lower lobes. There are small pleural effusions. He feels much better today. Oxygen saturation is improved. Wearing a Ventimask. Will try him on some nasal oxygen today if we can. 07/26/2016 patient feeling better and is now on 5 E. When I came in the room this morning his oxygen was off. I think he takes the facemask off to eat or drink or do most anything. Will try on 4 L nasal biprong's and see if we can keep his oxygen saturation at 90% or above with that. His x-ray is better. Pleural effusions are less. Still has bibasilar atelectatic pneumonitis. He is having some diarrhea now. One stool was negative for C. difficile. Will get a repeat one. Exam (Progress Note) - Constitutional Vitals: Period Temp Pulse Resp BP Sys/Guaman Pulse Ox Last 24 Hr 97.2 F-99 F 92-110 20-30 137-159/68-88 91-97 Exam: He is alert, vital signs normal. Pupils react to light. Throat is clear. Neck supple no bruits. Wearing Ventimask. Chest reveals some mild bibasilar rales. Otherwise clear. Heart normal rate rhythm no murmurs. Abdomen remains tender soft he does have some bowel sounds. Extremities no clubbing cyanosis, trace of edema. Results - Labs CBC & BMP: 07/26/16 05:13 07/26/16 05:13 Lab Results: I have reviewed the past 24 hour labs - Diagnostic Findings Procedure: Chest x-ray: image reviewed by me (Chest x-ray from 07/25/2016 does show some improvement. Effusions are smaller. Bibasilar pneumonia bilaterally worse on the right. Overall improved.) Assessment and Plan (1) Pneumonia of both lower lobes Status: Acute Assessment and plan: CT scan shows air bronchograms and consolidation in both lower lobes consistent with pneumonia. Certainly atelectasis related to his pancreatitis may be playing a part as well. He has small pleural effusions too small to tap. He is on Merrem which should be good for lower lobe pneumonia. 07/24/2016 continuing with empiric antibiotics. 07/26/2016 continuing empiric antibiotics. Having diarrhea. Check for C. difficile. Current Visit: Yes (2) Acute pancreatitis Status: Acute Assessment and plan: Defer to GI. Symptoms seem to be a little better. We may be getting a little ahead on fluids. 07/24/2016 lipase has come down. Less abdominal pain. 07/26/2016 lipase continues to fall. Taking some liquids by mouth. Current Visit: Yes (3) Poorly-controlled hypertension Status: Acute Assessment and plan: Needs additional blood pressure medications. We will add labetalol. 07/24/2016 blood pressure looks a little better. 07/26/2016 blood pressure improved. Current Visit: Yes (4) Tracheal deviation Status: Acute Assessment and plan: I do not see a mass in his substernal area. He may have some substernal thyroid. Await interpretation from radiologist. 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 Current Visit: Yes
--- NOTE | 2016-07-26 08:42 | Gastrointestinal Progress Note ---
Assessment and Plan (1) Acute pancreatitis Status: Acute Assessment and plan: 07/26-Abd pain improved, no N/V. LFT normal and bilirubin down at 1.5. Having frequent loose stools. Repeat stool for C. diff and will order stool studies. Plan and addendum to follow by Dr Kirby. 07/25-No changes at present time. Repeat LFT and lipase today. Continue to monitor. Plan and addendum to follow by Dr Kirby. 07/24-abdominal pain improved. Lipase levels and LFTs continue to trend downward. Respiratory status improving. Plan and addendum to follow by Dr. Kirby 07/23-abdominal pain slightly improved. Lipase levels trending down. LFTs trending down. Ultrasound findings noted. Findings of pneumonia noted today with pulmonary consult done. Plan an addendum to followed by Dr. Kirby. Current Visit: Yes Gastroenterology - PN: Subj Interval history: CC: Pancreatitis Pt is up ambulating around room at present time. States he feels about the same today. States his breathing is not much improved. He has had onset of frequent watery stools, too numerous to count. Nursing staff states he has a bowel movement every 20-30 minutes. He denies any cramping, nausea or vomiting. Denies any blood in stool. He is afebrile. Stool has been checked x 1 for C. diff on yesterday. Will repeat C. diff and check stool studies as well. WBC 22.7. Bilirubin is trending down at 1.5 with normal transaminases. Abdomen is soft, nontender. ROS: No acute distress at present time Exam (Progress Note) - Constitutional Vitals: Period Temp Pulse Resp BP Sys/Guaman Pulse Ox Last 24 Hr 97.2 F-99.1 F 92-110 18-30 137-159/68-88 91-97 General appearance: normal weight, no acute distress - Head Head exam: Present: normal inspection, normocephalic - Eye Eye exam: Present: other (lids and conjunctiva unremarakble). Absent: scleral icterus - ENT ENT exam: Present: normal exam, normal oropharynx - Neck Neck exam: Present: normal inspection - Respiratory Respiratory exam: Present: clear to auscultation bilaterally. Absent: rales, rhonchi, wheezes - Cardiovascular Cardiovascular exam: Present: regular rate and rhythm. Absent: diastolic murmur , JVD, systolic murmur - GI/Abdominal GI/Abdominal exam: Present: normal bowel sounds, soft. Absent: ascites, distended, mass, organomegaly, tenderness - Extremities Exam Extremities exam: Present: normal inspection, full ROM - Back Exam Back exam: Present: normal inspection - Neurological Exam Neurological exam: Present: alert, oriented X3 - Psychiatric Psychiatric exam: Present: normal affect, normal mood - Skin Skin exam: Present: normal color, warm, dry Results - Labs CBC & BMP: 07/26/16 05:13 07/26/16 05:13 Lab Results: I have reviewed the past 24 hour labs
[2016-07-26] MEDS: amLODIPine 10 MG TABLET PO SCH (09:13)
[2016-07-26] MEDS: INSULIN GLARGINE 100 UNIT/ML SUBCUT SCH (09:14)
[2016-07-26] MEDS: LABETALOL 200 MG TABLET PO SCH ×2 (09:14→21:25)
[2016-07-26] MEDS: INSULIN REGULAR 100 UNIT/ML SUBCUT SCH ×4 (09:15→21:25)
[2016-07-26] MEDS: PANTOPRAZOLE 40 MG VIAL IV SCH (09:15)
[2016-07-26] MEDS: FUROSEMIDE 40 MG/4 ML VIAL IV SCH (09:15)
[2016-07-26] MEDS ORDERED: POTASSIUM CHLORIDE 20 MEQ TABLET PO ONE (09:23)
--- NOTE | 2016-07-26 09:31 | Hospitalist Progress Note ---
Assessment and Plan (1) Leukocytosis Status: Acute Assessment and plan: 1)acute pancreatitis- lipase normalized, and liver enzymes also back to normal. Will need cholecystectomy eventually. start pancrease for diarrhea and await stool studies. 2)bilateral pneumonia- on day #2 vanc, ceftaz, and azithro. was on Merrem from admission before that. definitely improving though still very ill- short of breath with any acitivity. encourage up to chair, wean O2 as tolerated. WBC coming down slowly. 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 6)new diabetes with occurrence of pancreatitis- on lantus and SSI with adequte glucose control. cont SSI. Hopefully he won't need insulin test driller. Current Visit: Yes (2) Tracheal deviation Status: Acute Current Visit: Yes (3) Pulmonary edema cardiac cause Status: Acute Current Visit: Yes (4) Acute pancreatitis Status: Acute Current Visit: Yes (5) Poorly-controlled hypertension Status: Acute Current Visit: Yes (6) Hyperglycemia Status: Acute Current Visit: Yes (7) Elevated liver enzymes Status: Acute Current Visit: Yes (8) Ileus Status: Acute Current Visit: Yes Hospitalist: Subjective Interval history: Mr Cabral is doing better today. His CXR is improved, and he is more comfortable though still very short of breath with activity. He is on NC and is hodling his sats so far. Antibiotics changed yesterday, diarrhea continues. repeat stool studies ordered by GI. Exam - Constitutional Vitals: Period Temp Pulse Resp BP Sys/Guaman Pulse Ox Last 24 Hr 97.2 F-99.1 F 92-110 18-30 137-159/68-88 91-98 General appearance: no acute distress, morbidly obese - Head Head exam: Present: normocephalic, atraumatic - Eye Eye exam: Present: EOMI. Absent: scleral icterus - Respiratory Respiratory exam: Present: rales (some rales at bases- overall imprvoed breath sounds throughout.) - Cardiovascular Cardiovascular exam: Present: regular rate and rhythm - GI/Abdominal GI/Abdominal exam: Present: normal bowel sounds, distended, soft. Absent: tenderness - Extremities Exam Extremities exam: Absent: edema Results - Labs CBC & BMP: 07/26/16 05:13 07/26/16 05:13
[2016-07-26] MEDS: LIPASE/PROTEASE/AMYLASE 4,200 UNITS CAPSULE PO SCH ×2 (11:45→18:08)
[2016-07-26] MEDS: AZITHROMYCIN INJ 500 MG in SODIUM CHLORIDE 0.9% 250 ML IV SCH (14:32)
[2016-07-27] MEDS: ALBUTEROL/IPRATROPIUM 3 ML NEB RESP TX SCH ×4 (00:29→19:42)
[2016-07-27] MEDS: VANCOMYCIN INJ 2,000 MG in SODIUM CHLORIDE 0.9% 500 ML IV SCH ×2 (05:10→16:34)
[2016-07-27 07:08] LABS: Basophils # 0.1 10*3/uL (0.0-0.2); Basophils % 0.4 % (0.0-0.8); Eosinophils # 0.2 10*3/uL (0.0-0.87); Eosinophils % 0.6 % (0.00-10.9); Hematocrit 31.1 VOL% (42.0-52.0); Hemoglobin 11.4 GM/DL (14.0-18.0); Immature Granulocytes % 5.6 %; Immature Granulocytes Absolute 1.51 #; Lymphocytes # 3.2 10*3/uL (1.4-4.0); Lymphocytes % 11.8 % (21.2-54.2); Mean Corpuscular HGB Conc 36.7 GM/DL (32-36); Mean Corpuscular Hemoglobin 26 PG (27-34); Mean Corpuscular Volume 71.5 FL (87-102); Monocytes # 3.4 10*3/uL (0.11-0.8); Monocytes % 12.6 % (1.7-12.7); Neutrophils # 18.8 10*3/uL (1.4-7.4); Platelet Count 344 T/CUMM (130-400); Red Blood Count 4.35 MC/CUMM (3.8-5.5); Red Cell Distribution Width 14.8 % (9.3-17.3); White Blood Count 27.2 T/CUMM (4-12)
[2016-07-27 07:30] LABS: Band Neutrophils 3 % (0-10); Hypochromasia Slight; Lymphocytes 5 % (20-55); Myelocytes 1 %; Platelet Estimate Adequate; Segmented Neutrophils 79 % (50-85); Total Cells Counted 100
--- NOTE | 2016-07-27 07:32 | Pulmonology Progress Note ---
Pulmonary - PN: Subj Interval history: This 50-year-old man came in with pancreatitis. He has consolidation and atelectasis in both lower lobes. There are small pleural effusions. He feels much better today. Oxygen saturation is improved. Wearing a Ventimask. Will try him on some nasal oxygen today if we can. 07/26/2016 patient feeling better and is now on 5 E. When I came in the room this morning his oxygen was off. I think he takes the facemask off to eat or drink or do most anything. Will try on 4 L nasal biprong's and see if we can keep his oxygen saturation at 90% or above with that. His x-ray is better. Pleural effusions are less. Still has bibasilar atelectatic pneumonitis. He is having some diarrhea now. One stool was negative for C. difficile. Will get a repeat one. 07/27/2016 patient is feeling better. Taking full liquids by mouth. Still having some diarrhea. He has some bibasilar pneumonitis which is getting better. He has been on antibiotics for right at a week. I think we need to cut back. We will stop Fortaz and Zithromax and put him on just Rocephin 1 g daily. He is still on vancomycin. All of these could probably be stopped about Saturday. Exam (Progress Note) - Constitutional Vitals: Period Temp Pulse Resp BP Sys/Guaman Pulse Ox Last 24 Hr 98.4 F-100.7 F 95-103 18-28 131-155/77-86 91-99 Exam: He is alert, vital signs normal. Pupils react to light. Throat is clear. Neck supple no bruits. Wearing Ventimask. Chest reveals some mild bibasilar rales. Otherwise clear. Heart normal rate rhythm no murmurs. Abdomen remains tender soft he does have some bowel sounds. Extremities no clubbing cyanosis, trace of edema. Results - Labs CBC & BMP: 07/27/16 06:25 07/26/16 05:13 Lab Results: I have reviewed the past 24 hour labs Assessment and Plan (1) Pneumonia of both lower lobes Status: Acute Assessment and plan: CT scan shows air bronchograms and consolidation in both lower lobes consistent with pneumonia. Certainly atelectasis related to his pancreatitis may be playing a part as well. He has small pleural effusions too small to tap. He is on Merrem which should be good for lower lobe pneumonia. 07/24/2016 continuing with empiric antibiotics. 07/26/2016 continuing empiric antibiotics. Having diarrhea. Check for C. difficile. 07/27/2016 clinically better from pneumonia. Stools for C. difficile have been negative but patient is still having some diarrhea. Trying to cut back on total antibiotic load. Watch renal function on vancomycin blood cultures have been negative. Low-grade fever may be from this but more likely from his pancreatitis. Current Visit: Yes (2) Acute pancreatitis Status: Acute Assessment and plan: Defer to GI. Symptoms seem to be a little better. We may be getting a little ahead on fluids. 07/24/2016 lipase has come down. Less abdominal pain. 07/26/2016 lipase continues to fall. Taking some liquids by mouth. 07/27/2016 abdominal pain has subsided. Progressing with liquid diet. Current Visit: Yes (3) Poorly-controlled hypertension Status: Acute Assessment and plan: Needs additional blood pressure medications. We will add labetalol. 07/24/2016 blood pressure looks a little better. 07/26/2016 blood pressure improved. 07/27/2016 blood pressure better control now. 155/80 today. Current Visit: Yes (4) Tracheal deviation Status: Acute Assessment and plan: I do not see a mass in his substernal area. He may have some substernal thyroid. Await interpretation from radiologist. 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 Current Visit: Yes
[2016-07-27 07:40] LABS: Osmolality,Calculated 288.4 MOS/KG (273-304); Potassium 3.6 MMOL/L (3.5-5.1)
--- NOTE | 2016-07-27 08:19 | Gastrointestinal Progress Note ---
Assessment and Plan (1) Acute pancreatitis Status: Acute Assessment and plan: 07/27-No c/o pain. Tolerating diet at present time. Having continued loose stools , negative stool studies. Plan and addendum to follow by Dr Kirby. 07/26-Abd pain improved, no N/V. LFT normal and bilirubin down at 1.5. Having frequent loose stools. Repeat stool for C. diff and will order stool studies. Plan and addendum to follow by Dr Kirby. 07/25-No changes at present time. Repeat LFT and lipase today. Continue to monitor. Plan and addendum to follow by Dr Kirby. 07/24-abdominal pain improved. Lipase levels and LFTs continue to trend downward. Respiratory status improving. Plan and addendum to follow by Dr. Kirby 07/23-abdominal pain slightly improved. Lipase levels trending down. LFTs trending down. Ultrasound findings noted. Findings of pneumonia noted today with pulmonary consult done. Plan an addendum to followed by Dr. Kirby. Current Visit: Yes Gastroenterology - PN: Subj Interval history: CC: Pancreatitis Pt is seen awake and alert. States that overall he is feeling better and breathing better however he is still having diarrhea frequently. States that if he "drinks a sip of water" he has a loose stool. Thus far stool studies are negative. WBC up today at 27.2. Abdomen is soft, nontender. ROS: Denies SOB or chest pain Exam (Progress Note) - Constitutional Vitals: Period Temp Pulse Resp BP Sys/Guaman Pulse Ox Last 24 Hr 98.4 F-100.7 F 95-103 18-22 131-155/77-82 93-99 General appearance: normal weight, no acute distress - Head Head exam: Present: normal inspection, normocephalic - Eye Eye exam: Present: other (lids and conjunctiva unremarkable). Absent: scleral icterus - ENT ENT exam: Present: normal exam, normal oropharynx - Neck Neck exam: Present: normal inspection - Respiratory Respiratory exam: Present: clear to auscultation bilaterally. Absent: rales, rhonchi, wheezes - Cardiovascular Cardiovascular exam: Present: regular rate and rhythm. Absent: diastolic murmur , JVD, systolic murmur - GI/Abdominal GI/Abdominal exam: Present: normal bowel sounds, soft. Absent: ascites, distended, mass, organomegaly, tenderness - Extremities Exam Extremities exam: Present: normal inspection, full ROM - Back Exam Back exam: Present: normal inspection - Neurological Exam Neurological exam: Present: alert, oriented X3 - Psychiatric Psychiatric exam: Present: normal affect, normal mood - Skin Skin exam: Present: normal color, warm, dry Results - Labs CBC & BMP: 07/27/16 06:25 07/27/16 06:25 Lab Results: I have reviewed the past 24 hour labs
[2016-07-27] MEDS ORDERED: INSULIN GLARGINE 100 UNIT/ML SUBCUT SCH (09:15)
[2016-07-27] MEDS: LIPASE/PROTEASE/AMYLASE 4,200 UNITS CAPSULE PO SCH ×2 (09:38→12:07)
[2016-07-27] MEDS: PANTOPRAZOLE 40 MG VIAL IV SCH (09:39)
[2016-07-27] MEDS: FUROSEMIDE 40 MG/4 ML VIAL IV SCH (09:39)
[2016-07-27] MEDS: LABETALOL 200 MG TABLET PO SCH ×2 (09:39→20:33)
[2016-07-27] MEDS: amLODIPine 10 MG TABLET PO SCH (09:40)
[2016-07-27] MEDS: cefTRIAXone 1,000 MG in SODIUM CHLORIDE 0.9% 100 ML IV SCH (09:46)
[2016-07-27] MEDS: INSULIN REGULAR 100 UNIT/ML SUBCUT SCH ×6 (09:48→22:32)
[2016-07-27] MEDS: INSULIN GLARGINE 100 UNIT/ML SUBCUT SCH (09:49)
--- NOTE | 2016-07-27 10:03 | Hospitalist Progress Note ---
Assessment and Plan (1) Leukocytosis Status: Acute Assessment and plan: 1)acute pancreatitis- enzymes normalized, will need cholecystectomy eventually. advance to diabetic diet since he is tolerating full liquids. 2)bilateral pneumonia- clinically much better now on vanc day 3, ceftriaxone day 1. ceftaz and azithro stopped. WBC remains elevated. afebrile. cultures all negative. no new focal complaints. CXR in am. 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 Now requiring lantus and high intensity SSI. Increase lantus to improve control - his appetite has improved and that is reflected in his increased accuchecks. Current Visit: Yes (2) Tracheal deviation Status: Acute Current Visit: Yes (3) Pulmonary edema cardiac cause Status: Acute Current Visit: Yes (4) Acute pancreatitis Status: Acute Current Visit: Yes (5) Poorly-controlled hypertension Status: Acute Current Visit: Yes (6) Hyperglycemia Status: Acute Current Visit: Yes (7) Elevated liver enzymes Status: Acute Current Visit: Yes (8) Ileus Status: Acute Current Visit: Yes Hospitalist: Subjective Interval history: I saw Mr Cabral get out of bed and walk around to sit in his chair with steadiness and not much shortness of breath- a significant improvement from Saturday. He agrees he feels better each day. His diarrhea is less but still frequent and stool studies have been neg for cdiff or enteric pathogens or WBCs. He is eating a little more. Exam - Constitutional Vitals: Period Temp Pulse Resp BP Sys/Guaman Pulse Ox Last 24 Hr 98.4 F-100.7 F 95-103 18-22 131-155/77-82 93-99 General appearance: no acute distress, morbidly obese - Head Head exam: Present: normocephalic, atraumatic - Eye Eye exam: Present: EOMI. Absent: scleral icterus - Respiratory Respiratory exam: Present: decreased breath sounds (at bases, otherwise clear) - Cardiovascular Cardiovascular exam: Present: regular rate and rhythm - GI/Abdominal GI/Abdominal exam: Present: normal bowel sounds, soft. Absent: tenderness - Extremities Exam Extremities exam: Absent: edema - Neurological Exam Neurological exam: Present: alert, oriented X3, CN II-XII intact. Absent: motor sensory deficit - Skin Skin exam: Present: warm, dry Results - Labs CBC & BMP: 07/27/16 06:25 07/27/16 06:25 Lab Results: I have reviewed the past 24 hour labs
[2016-07-27 13:34] LABS: ABG Base Excess -4.7 MMOL/L (-2.5-2.5); ABG HCO3 20.5 MMOL/L (20-26); ABG Oxygen Saturation 93.2 % (95-100); ABG PCO2 30.2 MM HG (35-48); ABG PH 7.406 (7.35-7.45); ABG PO2 68.6 MM HG (80-95); ABG TCO2 16.9 MMOL/L (23-27)
[2016-07-27] MEDS ORDERED: INSULIN GLARGINE 100 UNIT/ML SUBCUT ONE ×2 (15:43)
[2016-07-27] MEDS: LOPERAMIDE 2 MG CAPSULE PO PRN (16:25)
[2016-07-27] MEDS: ENOXAPARIN 40 MG/0.4 ML SYRINGE SUBCUT SCH (16:37)
[2016-07-28] MEDS: INSULIN REGULAR 100 UNIT/ML SUBCUT SCH ×6 (00:28→21:49)
[2016-07-28] MEDS: ALBUTEROL/IPRATROPIUM 3 ML NEB RESP TX SCH ×4 (00:32→20:05)
[2016-07-28] MEDS: VANCOMYCIN INJ 2,000 MG in SODIUM CHLORIDE 0.9% 500 ML IV SCH ×2 (05:30→16:57)
[2016-07-28 06:54] LABS: Basophils # 0.1 10*3/uL (0.0-0.2); Basophils % 0.3 % (0.0-0.8); Eosinophils # 0.4 10*3/uL (0.0-0.87); Eosinophils % 1.1 % (0.00-10.9); Hematocrit 30.2 VOL% (42.0-52.0); Hemoglobin 11.1 GM/DL (14.0-18.0); Immature Granulocytes % 4.7 %; Immature Granulocytes Absolute 1.52 #; Lymphocytes # 3.4 10*3/uL (1.4-4.0); Lymphocytes % 10.6 % (21.2-54.2); Mean Corpuscular HGB Conc 36.8 GM/DL (32-36); Mean Corpuscular Hemoglobin 27 PG (27-34); Mean Corpuscular Volume 72.8 FL (87-102); Mean Platelet Volume 10.4 FL (9.6-12.0); Monocytes # 3.9 10*3/uL (0.11-0.8); Monocytes % 11.9 % (1.7-12.7); Neutrophils # 23.2 10*3/uL (1.4-7.4); Neutrophils % 71.4 % (38.7-73.9); Platelet Count 381 T/CUMM (130-400); Red Blood Count 4.15 MC/CUMM (3.8-5.5); Red Cell Distribution Width 14.8 % (9.3-17.3); White Blood Count 32.5 T/CUMM (4-12)
[2016-07-28 06:59] LABS: Calcium 8.2 MG/DL (8.5-10.1); Osmolality,Calculated 280.4 MOS/KG (273-304); Potassium 3.9 MMOL/L (3.5-5.1)
[2016-07-28 07:19] LABS: Band Neutrophils 1 % (0-10); Eosinophils 1 % (0-10); Hypochromasia 1+; Lymphocytes 10 % (20-55); Microcytosis 1+; Myelocytes 1 %; Nucleated Red Blood Cells 1 (0-5); Segmented Neutrophils 76 % (50-85); Target Cells Slight; Total Cells Counted 100
[2016-07-28 07:20] LABS: Platelet Estimate Normal
[2016-07-28] MEDS: cefTRIAXone 1,000 MG in SODIUM CHLORIDE 0.9% 100 ML IV SCH (08:17)
[2016-07-28] MEDS: amLODIPine 10 MG TABLET PO SCH (08:18)
[2016-07-28] MEDS: FUROSEMIDE 40 MG/4 ML VIAL IV SCH (08:18)
[2016-07-28] MEDS: PANTOPRAZOLE 40 MG VIAL IV SCH (08:18)
[2016-07-28] MEDS: INSULIN GLARGINE 100 UNIT/ML SUBCUT SCH (08:18)
[2016-07-28] MEDS: LABETALOL 200 MG TABLET PO SCH ×2 (08:19→20:31)
--- NOTE | 2016-07-28 08:45 | Hospitalist Progress Note ---
Assessment and Plan (1) Acute kidney injury Status: Acute Assessment and plan: There is been a rise in his creatinine to 1.7 today. We will continue to renally adjust his medications and continue hydration with follow-up electrolytes and renal function in the a.m. Current Visit: Yes (2) Diabetes mellitus Status: Acute Assessment and plan: Blood sugars are improving. We will continue current regimen and follow Accu- Cheks with sliding scale. Current Visit: Yes (3) Acute pancreatitis Status: Acute Assessment and plan: Enzymes have normalized and he is tolerating his diet. Pancreatitis essentially resolved. Will continue current care. He will require cholecystectomy at some point. Current Visit: Yes (4) Pneumonia of both lower lobes Status: Acute Assessment and plan: He had low-grade fever last evening. He is clinically better and will continue his current IV antibiotic therapy. Cultures have been negative thus far. Chest x-ray pending. Current Visit: Yes (5) Hypertension Status: Acute Assessment and plan: Blood pressures are well controlled. Continue current regimen. Current Visit: Yes Hospitalist: Subjective Interval history: Patient is sitting upright in a chair eating breakfast and having no complaints at this time. He denies any abdominal pain., Nausea, vomiting. He states his diarrhea is much improved. He continues to have some shortness of breath and minimal cough but denies any chest pain. Exam - Constitutional Vitals: Period Temp Pulse Resp BP Sys/Guaman Pulse Ox Last 24 Hr 97.6 F-100.6 F 92-117 18-20 124-147/69-85 92-100 General appearance: no acute distress - Head Head exam: Present: normocephalic, atraumatic - Eye Eye exam: Present: EOMI Pupils: Present: BENSON - ENT ENT exam: Present: normal exam - Neck Neck exam: Present: normal inspection - Respiratory Respiratory exam: Present: clear to auscultation bilaterally. Absent: rales, rhonchi, wheezes - Cardiovascular Cardiovascular exam: Present: regular rate and rhythm. Absent: tachycardia - GI/Abdominal GI/Abdominal exam: Present: normal bowel sounds, soft. Absent: distended, tenderness, rebound - Extremities Exam Extremities exam: Absent: calf tenderness, edema - Back Exam Back exam: Present: normal inspection - Neurological Exam Neurological exam: Present: alert, oriented X3, CN II-XII intact. Absent: motor sensory deficit - Psychiatric Psychiatric exam: Present: normal affect, normal mood. Absent: agitated, anxious - Skin Skin exam: Present: warm, dry. Absent: rash Results - Labs CBC & BMP: 07/28/16 06:48 07/28/16 05:26 Lab Results: I have reviewed the past 24 hour labs
--- NOTE | 2016-07-28 09:45 | XRay Report ---
History is pneumonia Comparison 07/25/2016 The heart is enlarged There are mild patchy and linear opacities in both lung bases with mild improvement of prior hazy infiltrates in the right lung base. The upper lung solorio are relatively clear Lungs are under aerated Impression: Mild improvement with continued bilateral basilar infiltrate/atelectasis PROCEDURE INTERPRETED AT [facility] DEPARTMENT OF RADIOLOGY Final Report Signed by: Dr. Gudelia Gupta
[2016-07-28] MEDS: SODIUM CHLORIDE 0.9% 1,000 ML IV SCH ×2 (11:21→22:28)
[2016-07-28] MEDS: ENOXAPARIN 40 MG/0.4 ML SYRINGE SUBCUT SCH (16:57)
[2016-07-29] MEDS: ALBUTEROL/IPRATROPIUM 3 ML NEB RESP TX SCH ×4 (00:20→19:44)
[2016-07-29 03:47] LABS: Amorphous Crystals,Urine Occasional /HPF (Few); Apearance,Urine CLOUDY (Clear); Bilirubin,Urine Negative (Negative); Blood, Urine Small mg/dL (Negative); Glucose,Urine (UA) 50 mg/dL (Negative); Ketones,Urine Negative (Negative); Nitrite,Urine Negative (Negative); Protein,Urine 30 MG/DL; Urine Color Amber (Yellow); Urine Specific Gravity 1.012 (1.001-1.035); Urine Urobilinogen < 2.0 EU/DL (0.2-1.0)
[2016-07-29] MEDS: VANCOMYCIN INJ 2,000 MG in SODIUM CHLORIDE 0.9% 500 ML IV SCH ×2 (05:49→16:54)
[2016-07-29 06:37] LABS: Basophils # 0.1 10*3/uL (0.0-0.2); Basophils % 0.4 % (0.0-0.8); Eosinophils # 0.3 10*3/uL (0.0-0.87); Hematocrit 28.3 VOL% (42.0-52.0); Hemoglobin 10.5 GM/DL (14.0-18.0); Immature Granulocytes % 5.1 %; Immature Granulocytes Absolute 1.66 #; Lymphocytes # 2.6 10*3/uL (1.4-4.0); Lymphocytes % 8.1 % (21.2-54.2); Mean Corpuscular HGB Conc 37.1 GM/DL (32-36); Mean Corpuscular Hemoglobin 26 PG (27-34); Mean Corpuscular Volume 71.3 FL (87-102); Mean Platelet Volume 10.8 FL (9.6-12.0); Monocytes # 3.3 10*3/uL (0.11-0.8); Neutrophils # 24.5 10*3/uL (1.4-7.4); Neutrophils % 75.4 % (38.7-73.9); Platelet Count 434 T/CUMM (130-400); Red Blood Count 3.97 MC/CUMM (3.8-5.5); Red Cell Distribution Width 14.6 % (9.3-17.3); White Blood Count 32.6 T/CUMM (4-12)
[2016-07-29 07:09] LABS: Calcium 8.2 MG/DL (8.5-10.1); Osmolality,Calculated 286.5 MOS/KG (273-304); Potassium 3.7 MMOL/L (3.5-5.1)
[2016-07-29 07:24] LABS: Band Neutrophils 5 % (0-10); Lymphocytes 5 % (20-55); Segmented Neutrophils 84 % (50-85); Total Cells Counted 100
[2016-07-29 07:25] LABS: Burr Cells Slight; Hypochromasia 1+; Microcytosis 1+; Platelet Estimate Increased; Target Cells Slight
--- NOTE | 2016-07-29 07:50 | Hospitalist Progress Note ---
Assessment and Plan - Time spent with patient Time spent with patient: Less than 30 minutes (1) Acute kidney injury Status: Acute Assessment and plan: There is been a rise in his creatinine to 1.7 today. We will continue to renally adjust his medications and continue hydration with follow-up electrolytes and renal function in the a.m. 07/29/16: Continued rising creatinine. We will continue to hydrate. This is likely secondary to vancomycin. Consult nephrology to assist. Current Visit: Yes (2) Diabetes mellitus Status: Acute Assessment and plan: Blood sugars are improving. We will continue current regimen and follow Accu- Cheks with sliding scale. Current Visit: Yes (3) Acute pancreatitis Status: Acute Assessment and plan: Enzymes have normalized and he is tolerating his diet. Pancreatitis essentially resolved. Will continue current care. He will require cholecystectomy at some point. Current Visit: Yes (4) Pneumonia of both lower lobes Status: Acute Assessment and plan: He had low-grade fever last evening. He is clinically better and will continue his current IV antibiotic therapy. Cultures have been negative thus far. Chest x-ray pending. Current Visit: Yes (5) Hypertension Status: Chronic Assessment and plan: Blood pressures are well controlled. Continue current regimen. Current Visit: Yes Hospitalist: Subjective Interval history: Patient is doing well today without any further complaints. He denies any chest pain as shortness of breath is continuing to improve. Exam - Constitutional Vitals: Period Temp Pulse Resp BP Sys/Guaman Pulse Ox Last 24 Hr 98.3 F-99.3 F 82-106 20-22 120-160/68-83 93-100 General appearance: no acute distress - Head Head exam: Present: normocephalic, atraumatic - Eye Eye exam: Present: EOMI Pupils: Present: BENSON - ENT ENT exam: Present: normal exam - Neck Neck exam: Present: normal inspection - Respiratory Respiratory exam: Present: clear to auscultation bilaterally. Absent: rales, rhonchi, wheezes - Cardiovascular Cardiovascular exam: Present: regular rate and rhythm. Absent: tachycardia - GI/Abdominal GI/Abdominal exam: Present: normal bowel sounds, soft. Absent: distended, mass , tenderness - Extremities Exam Extremities exam: Present: edema (Trace to 1+ pitting edema pretibially). Absent: calf tenderness - Back Exam Back exam: Present: normal inspection - Neurological Exam Neurological exam: Present: alert, oriented X3, CN II-XII intact. Absent: motor sensory deficit - Psychiatric Psychiatric exam: Present: normal affect, normal mood. Absent: agitated, anxious - Skin Skin exam: Present: warm, dry. Absent: erythema, rash Results - Labs CBC & BMP: 07/29/16 06:11 07/29/16 06:11 Lab Results: I have reviewed the past 24 hour labs
[2016-07-29] MEDS: INSULIN REGULAR 100 UNIT/ML SUBCUT SCH ×4 (08:11→20:34)
[2016-07-29] MEDS: FUROSEMIDE 40 MG/4 ML VIAL IV SCH (08:11)
[2016-07-29] MEDS: cefTRIAXone 1,000 MG in SODIUM CHLORIDE 0.9% 100 ML IV SCH (08:12)
[2016-07-29] MEDS: LABETALOL 200 MG TABLET PO SCH ×2 (08:12→20:34)
[2016-07-29] MEDS: amLODIPine 10 MG TABLET PO SCH (08:12)
[2016-07-29] MEDS: PANTOPRAZOLE 40 MG VIAL IV SCH (08:12)
[2016-07-29] MEDS: INSULIN GLARGINE 100 UNIT/ML SUBCUT SCH (08:12)
--- NOTE | 2016-07-29 12:22 | Nephrology Consult Note ---
History of Present Illness Chief complaint: Acute renal failure History of present illness: Mr. Cabral is a 50 year old male with history of hypertension diabetes has been admitted for pancreatitis and pneumonia. Patient's serum creatinine is been noted to be elevated up to 2.5. He gives no history of kidney disease. Mentions that he does not take NSAID medications. There is no history of hypotensive episodes during this hospitalization. However patient did have a CT chest with contrast approximately 4 days ago which coincides when the serum creatinine started to increase. At present he denies any shortness of breath or chest pain. Nephrology is been consulted for acute renal failure. At this time avoid nephrotoxic agents. Daily BMP. Will follow along with you. Home Medications Medication Instructions Recorded Confirmed Type Aspirin [Ecotrin] 81 mg PO DAILY 07/21/16 07/21/16 History Atenolol [Tenormin] 200 mg PO DAILY 07/21/16 07/21/16 History Lisinopril [Zestril] 40 mg PO DAILY 07/21/16 07/21/16 History Tamsulosin [Flomax] 0.4 mg PO DAILY 07/21/16 07/21/16 History hydroCHLOROthiazide 25 mg PO DAILY 07/21/16 07/21/16 History [Hydrochlorothiazide] Allergies Allergy/AdvReac Type Severity Reaction Status Date / Time No Known Allergies Allergy Unverified 07/21/16 06:49 Medical,Surgical,& Family Hx - Medical History Cardio: History of: Hypertension Genitourinary: History of: Prostate Problems Gastrointestinal: History of: Pancreatitis - Social History Smoking Status: Current every day smoker Frequency of Alcohol Use: Rarely Type of Drug Use: None Review of Systems Constitutional: no anorexia, no chills Gastrointestinal: no abdominal pain Exam - Vital Signs Vital signs: Period Temp Pulse Resp BP Sys/Guaman Pulse Ox Last 24 Hr 98 F-99.3 F 82-106 18-22 138-160/72-83 93-100 - General Appearance General appearance: well-developed, well-nourished EENT: ATNC Neck: supple Respiratory: clear Cardiology: regular rate, regular rhythm Gastrointestinal: normoactive bowel sounds, no tenderness Neurologic: alert and oriented x3 Musculoskeletal: no clubbing Psychiatric: mood/affect appropriate Results - Labs CBC & BMP: 07/29/16 06:11 03/26/17 06:11 Assessment and Plan - Time spent with patient Time spent with patient: Greater than 30 minutes (1) Acute pancreatitis Status: Acute Assessment and plan: This appears to be improving. Current Visit: Yes (2) Poorly-controlled hypertension Status: Acute Assessment and plan: Blood pressure is stable. Current Visit: Yes (3) Leukocytosis Status: Acute Current Visit: Yes (4) Acute kidney injury Status: Acute Current Visit: Yes (5) Diabetes mellitus Status: Acute Current Visit: Yes Qualifiers: Diabetes mellitus type: type 2 Diabetes mellitus complication status: with kidney complications Chronic kidney disease stage: stage 2 (mild) (6) Acute kidney injury Status: Acute Assessment and plan: Appears to be multifactorial. Hypertension, diabetes, IV contrast study. Current Visit: Yes
[2016-07-29] MEDS: ENOXAPARIN 40 MG/0.4 ML SYRINGE SUBCUT SCH (16:54)
[2016-07-29] MEDS: SODIUM CHLORIDE 0.9% 1,000 ML IV SCH (17:29)
[2016-07-30] MEDS: ALBUTEROL/IPRATROPIUM 3 ML NEB RESP TX SCH ×4 (00:16→19:29)
[2016-07-30] MEDS: VANCOMYCIN INJ 2,000 MG in SODIUM CHLORIDE 0.9% 500 ML IV SCH (05:24)
[2016-07-30 06:39] LABS: Basophils # 0.1 10*3/uL (0.0-0.2); Basophils % 0.3 % (0.0-0.8); Eosinophils # 0.4 10*3/uL (0.0-0.87); Eosinophils % 1.3 % (0.00-10.9); Hematocrit 27.6 VOL% (42.0-52.0); Immature Granulocytes % 4.6 %; Immature Granulocytes Absolute 1.48 #; Lymphocytes # 2.9 10*3/uL (1.4-4.0); Mean Corpuscular HGB Conc 36.2 GM/DL (32-36); Mean Corpuscular Hemoglobin 26 PG (27-34); Mean Corpuscular Volume 72.6 FL (87-102); Mean Platelet Volume 10.7 FL (9.6-12.0); Monocytes # 3.2 10*3/uL (0.11-0.8); Monocytes % 9.9 % (1.7-12.7); Neutrophils # 24.2 10*3/uL (1.4-7.4); Neutrophils % 74.9 % (38.7-73.9); Platelet Count 453 T/CUMM (130-400); Red Cell Distribution Width 14.5 % (9.3-17.3); White Blood Count 32.3 T/CUMM (4-12)
[2016-07-30 07:07] LABS: Band Neutrophils 2 % (0-10); Hypochromasia 1+; Lymphocytes 7 % (20-55); Myelocytes 2 %; Platelet Estimate Increased; Segmented Neutrophils 84 % (50-85); Total Cells Counted 100
[2016-07-30 07:08] LABS: Calcium 7.9 MG/DL (8.5-10.1); Osmolality,Calculated 286.3 MOS/KG (273-304); Potassium 3.4 MMOL/L (3.5-5.1)
[2016-07-30] MEDS: SODIUM CHLORIDE 0.9% 1,000 ML IV SCH ×2 (07:09→08:10)
[2016-07-30] MEDS: FUROSEMIDE 40 MG/4 ML VIAL IV SCH (08:08)
[2016-07-30] MEDS: cefTRIAXone 1,000 MG in SODIUM CHLORIDE 0.9% 100 ML IV SCH (08:08)
[2016-07-30] MEDS: PANTOPRAZOLE 40 MG VIAL IV SCH (08:08)
--- NOTE | 2016-07-30 08:08 | Pulmonology Progress Note ---
Pulmonary - PN: Subj Interval history: This 50-year-old man came in with pancreatitis. He has consolidation and atelectasis in both lower lobes. There are small pleural effusions. He feels much better today. Oxygen saturation is improved. Wearing a Ventimask. Will try him on some nasal oxygen today if we can. 07/26/2016 patient feeling better and is now on 5 E. When I came in the room this morning his oxygen was off. I think he takes the facemask off to eat or drink or do most anything. Will try on 4 L nasal biprong's and see if we can keep his oxygen saturation at 90% or above with that. His x-ray is better. Pleural effusions are less. Still has bibasilar atelectatic pneumonitis. He is having some diarrhea now. One stool was negative for C. difficile. Will get a repeat one. 07/27/2016 patient is feeling better. Taking full liquids by mouth. Still having some diarrhea. He has some bibasilar pneumonitis which is getting better. He has been on antibiotics for right at a week. I think we need to cut back. We will stop Fortaz and Zithromax and put him on just Rocephin 1 g daily. He is still on vancomycin. All of these could probably be stopped about Saturday. 07/30/2016 patient is feeling better. Diarrhea is much better. Creatinine has risen. We will stop vancomycin. We have not had any cultures that would make us continue that. Exam (Progress Note) - Constitutional Vitals: Period Temp Pulse Resp BP Sys/Guaman Pulse Ox Last 24 Hr 98 F-99.8 F 91-106 17-22 138-166/68-89 91-99 Exam: He is alert, vital signs normal. Pupils react to light. Throat is clear. Neck supple no bruits. Wearing Ventimask. Chest reveals some mild bibasilar rales. Otherwise clear. Heart normal rate rhythm no murmurs. Abdomen remains tender soft he does have some bowel sounds. Extremities no clubbing cyanosis, trace of edema. Results - Labs CBC & BMP: 07/30/16 06:10 07/30/16 06:10 Lab Results: I have reviewed the past 24 hour labs Assessment and Plan (1) Pneumonia of both lower lobes Status: Acute Assessment and plan: CT scan shows air bronchograms and consolidation in both lower lobes consistent with pneumonia. Certainly atelectasis related to his pancreatitis may be playing a part as well. He has small pleural effusions too small to tap. He is on Merrem which should be good for lower lobe pneumonia. 07/24/2016 continuing with empiric antibiotics. 07/26/2016 continuing empiric antibiotics. Having diarrhea. Check for C. difficile. 07/27/2016 clinically better from pneumonia. Stools for C. difficile have been negative but patient is still having some diarrhea. Trying to cut back on total antibiotic load. Watch renal function on vancomycin blood cultures have been negative. Low-grade fever may be from this but more likely from his pancreatitis. 07/30/2016 clinically improved. Recheck x-ray tomorrow. Stop vancomycin due to worsening renal function. Still on Rocephin. Current Visit: Yes (2) Acute pancreatitis Status: Acute Assessment and plan: Defer to GI. Symptoms seem to be a little better. We may be getting a little ahead on fluids. 07/24/2016 lipase has come down. Less abdominal pain. 07/26/2016 lipase continues to fall. Taking some liquids by mouth. 07/27/2016 abdominal pain has subsided. Progressing with liquid diet. 07/30/2016 clinically improved. Current Visit: Yes (3) Poorly-controlled hypertension Status: Acute Assessment and plan: Needs additional blood pressure medications. We will add labetalol. 07/24/2016 blood pressure looks a little better. 07/26/2016 blood pressure improved. 07/27/2016 blood pressure better control now. 155/80 today. 07/30/2016 blood pressure looks okay. Current Visit: Yes (4) Tracheal deviation Status: Acute Assessment and plan: I do not see a mass in his substernal area. He may have some substernal thyroid. Await interpretation from radiologist. 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 Current Visit: Yes
[2016-07-30] MEDS: LABETALOL 200 MG TABLET PO SCH ×2 (08:10→21:58)
[2016-07-30] MEDS: INSULIN REGULAR 100 UNIT/ML SUBCUT SCH ×4 (08:10→21:58)
[2016-07-30] MEDS: INSULIN GLARGINE 100 UNIT/ML SUBCUT SCH (08:10)
[2016-07-30] MEDS: amLODIPine 10 MG TABLET PO SCH (08:10)
--- NOTE | 2016-07-30 08:51 | Gastrointestinal Progress Note ---
Assessment and Plan (1) Acute pancreatitis Status: Acute Assessment and plan: 07/30-Denies abdominal pain. Tolerating diet well. Diarrhea is improved. Negative stool studies. Plan and addendum to follow by Dr Kirby. 07/27-No c/o pain. Tolerating diet at present time. Having continued loose stools , negative stool studies. Plan and addendum to follow by Dr Kirby. 07/26-Abd pain improved, no N/V. LFT normal and bilirubin down at 1.5. Having frequent loose stools. Repeat stool for C. diff and will order stool studies. Plan and addendum to follow by Dr Kirby. 07/25-No changes at present time. Repeat LFT and lipase today. Continue to monitor. Plan and addendum to follow by Dr Kirby. 07/24-abdominal pain improved. Lipase levels and LFTs continue to trend downward. Respiratory status improving. Plan and addendum to follow by Dr. Kirby 07/23-abdominal pain slightly improved. Lipase levels trending down. LFTs trending down. Ultrasound findings noted. Findings of pneumonia noted today with pulmonary consult done. Plan an addendum to followed by Dr. Kirby. Current Visit: Yes Gastroenterology - PN: Subj Interval history: CC: Pancreatitis Patient is seen lying in bed awake and alert. States he is feeling about the same at this time. Denies any shortness of breath or acute distress. Diarrhea has improved over the weekend and only having 2 stools every 24 hours however patient states he still has urgency with the stools. Denies any melena or hematochezia. Has a good appetite denies any abdominal pain. All stool studies were negative. WBCs noted to continue to climb at 32,000 today. Afebrile at present time but ran low-grade fever yesterday. Creatinine up at 3. Nephrology has been consulted. ROS: Denies shortness of breath or chest pain Exam (Progress Note) - Constitutional Vitals: Period Temp Pulse Resp BP Sys/Guaman Pulse Ox Last 24 Hr 98 F-99.8 F 91-106 17-22 138-166/68-89 91-99 General appearance: normal weight, no acute distress - Head Head exam: Present: normal inspection, normocephalic - Eye Eye exam: Present: other (Lids and conjunctivae unremarkable). Absent: scleral icterus - ENT ENT exam: Present: normal exam, normal oropharynx - Neck Neck exam: Present: normal inspection - Respiratory Respiratory exam: Present: clear to auscultation bilaterally. Absent: rales, rhonchi, wheezes - Cardiovascular Cardiovascular exam: Present: regular rate and rhythm. Absent: diastolic murmur , JVD, systolic murmur - GI/Abdominal GI/Abdominal exam: Present: normal bowel sounds, soft. Absent: ascites, distended, mass, organomegaly, tenderness - Extremities Exam Extremities exam: Present: normal inspection, full ROM - Back Exam Back exam: Present: normal inspection - Neurological Exam Neurological exam: Present: alert, oriented X3 - Psychiatric Psychiatric exam: Present: normal affect, normal mood - Skin Skin exam: Present: normal color, warm, dry Results - Labs CBC & BMP: 07/30/16 06:10 07/30/16 06:10 Lab Results: I have reviewed the past 24 hour labs
--- NOTE | 2016-07-30 12:51 | Nephrology Progress Note ---
Nephrology - PN: Subj Interval history: Patient is resting comfortably no acute changes. States his breathing is fine. He had urine culture that is preliminary come back yeast. At this time starting Diflucan 200 mg. Serum creatinine noted to be up to 3.1 today. Will discontinue Lasix therapy vancomycin has already been discontinued. Continue to observe encourage patient to drink limits. Exam (PN)-Nephrology - Vital Signs Vital signs: Period Temp Pulse Resp BP Sys/Guaman Pulse Ox Last 24 Hr 98.5 F-99.8 F 91-106 17-22 138-166/68-89 91-99 - General Appearance General appearance: well-developed, well-nourished EENT: ATNC Neck: supple Respiratory: clear Cardiology: regular rate, regular rhythm Gastrointestinal: normoactive bowel sounds, no tenderness Integumentary: no rash Neurologic: alert and oriented x3 Musculoskeletal: no clubbing Psychiatric: mood/affect appropriate - Lab 07/30/16 06:10 07/30/16 06:10 Most recent lab results ABG pH 7.406 (7.35-7.45) 07/27/16 13:24 ABG pCO2 30.2 MM HG (35-48) L 07/27/16 13:24 ABG pO2 68.6 MM HG (80-95) L 07/27/16 13:24 ABG HCO3 20.5 MMOL/L (20-26) 07/27/16 13:24 ABG O2 Saturation 93.2 % (95-100) L 07/27/16 13:24 Calcium 7.9 MG/DL (8.5-10.1) L 07/30/16 06:10 Assessment and Plan (1) Acute pancreatitis Status: Acute Assessment and plan: This appears to be improving. Current Visit: Yes (2) Poorly-controlled hypertension Status: Acute Assessment and plan: Blood pressure is stable. Current Visit: Yes (3) Leukocytosis Status: Acute Current Visit: Yes (4) Acute kidney injury Status: Acute Current Visit: Yes (5) Diabetes mellitus Status: Acute Current Visit: Yes Qualifiers: Diabetes mellitus type: type 2 Diabetes mellitus complication status: with kidney complications Chronic kidney disease stage: stage 2 (mild) (6) Acute kidney injury Status: Acute Assessment and plan: Appears to be multifactorial. Hypertension, diabetes, IV contrast study. Also patient has had vancomycin. This is been discontinued. At this time will repeat BMP in a.m. Let patient drink plenty of fluids. Will hold IV fluids. Current Visit: Yes
[2016-07-30] MEDS: FLUCONAZOLE 200 MG TABLET PO SCH (13:05)
[2016-07-30] MEDS: ENOXAPARIN 40 MG/0.4 ML SYRINGE SUBCUT SCH (16:46)
--- NOTE | 2016-07-30 17:13 | Hospitalist Progress Note ---
Assessment and Plan (1) Acute pancreatitis Status: Acute Assessment and plan: Resolved. Patient has cholelithiasis of his gallbladder. This is not an acute problem. His gallbladder can be taken out on an outpatient basis Current Visit: Yes (2) Poorly-controlled hypertension Status: Acute Assessment and plan: Continue labetalol twice daily and Norvasc Current Visit: Yes (3) Insulin dependent diabetes mellitus Status: Acute Assessment and plan: Not controlled increase insulin Current Visit: Yes (4) Pneumonia of both lower lobes Status: Acute Assessment and plan: Wean off oxygen, continue duo nebs, cont Rocephin, vanco on hold Current Visit: Yes (5) Acute kidney injury Status: Acute Assessment and plan: Discussed case with Dr. Renteria. Creatinine is a little worse today. Dr. Renteria wants to stop fluids and Lasix. Continue to monitor creatinine. recheck cr in am Current Visit: Yes (6) Hypokalemia Status: Acute Assessment and plan: Replacing Current Visit: Yes (7) Diarrhea Status: Acute Assessment and plan: C. difficile negative, stool culture negative, stool for WBCs negative Current Visit: Yes (8) Leukocytosis Status: Acute Assessment and plan: Patient's white count is increased to 32 over the last 3 days. Patient was having diarrhea but this is improved. Stool for C. difficile is negative 2 on 07/25 and 07/26. Will have Dr. Alvarez take a look. Discussed case with Dr. Barnett Current Visit: Yes (9) Sharon UTI Status: Acute Assessment and plan: Continue Diflucan Current Visit: Yes Hospitalist: Subjective Interval history: Able to wean patient down from 4 L to 1 L and stable on 95%. We will attempt to wean him all the way off of oxygen today. Dr. Renteria wants to watch him 1 more day. We will DC his Lasix and DC his normal saline. Creatinine is better in the morning we will let him go home. Exam - Constitutional Vitals: Period Temp Pulse Resp BP Sys/Guaman Pulse Ox Last 24 Hr 98.5 F-98.9 F 91-106 17-22 134-159/68-88 91-99 Exam: Heart Rate-[RRR] Lungs-[diminished] GI-[positive bowel sounds soft and nontender no evidence of tenderness over the gallbladder Ext-[1+ edema] Neuro [Motor 5/5], [alert and oriented times 3] psych [normal mood and affect] General [no acute distress] Results - Labs CBC & BMP: 07/30/16 06:10 07/30/16 06:10 Lab Results: I have reviewed the past 24 hour labs Labs: Patient growing yeast in his urine.
[2016-07-30] MEDS ORDERED: POTASSIUM CHLORIDE 20 MEQ TABLET PO ONE (17:14)
[2016-07-30] MEDS ORDERED: INSULIN GLARGINE 100 UNIT/ML SUBCUT SCH (17:19)
[2016-07-31] MEDS: ALBUTEROL/IPRATROPIUM 3 ML NEB RESP TX SCH ×2 (01:00→06:57)
--- NOTE | 2016-07-31 07:30 | XRay Report ---
XR chest 1V portable Indication: Pneumonia. Pleural effusions. Chest one view: Since 07/28/2016, cardiomegaly, central pulmonary vascular prominence and pulmonary hypoinflation with bibasilar and left perihilar atelectasis is stable. Left hemidiaphragm remains obscured. Impression: No appreciable change. PROCEDURE INTERPRETED AT [facility] DEPARTMENT OF RADIOLOGY Final Report Signed by: Jemal Casillas M.D.
--- NOTE | 2016-07-31 07:43 | Pulmonology Progress Note ---
Pulmonary - PN: Subj Interval history: This 50-year-old man came in with pancreatitis. He has consolidation and atelectasis in both lower lobes. There are small pleural effusions. He feels much better today. Oxygen saturation is improved. Wearing a Ventimask. Will try him on some nasal oxygen today if we can. 07/26/2016 patient feeling better and is now on 5 E. When I came in the room this morning his oxygen was off. I think he takes the facemask off to eat or drink or do most anything. Will try on 4 L nasal biprong's and see if we can keep his oxygen saturation at 90% or above with that. His x-ray is better. Pleural effusions are less. Still has bibasilar atelectatic pneumonitis. He is having some diarrhea now. One stool was negative for C. difficile. Will get a repeat one. 07/27/2016 patient is feeling better. Taking full liquids by mouth. Still having some diarrhea. He has some bibasilar pneumonitis which is getting better. He has been on antibiotics for right at a week. I think we need to cut back. We will stop Fortaz and Zithromax and put him on just Rocephin 1 g daily. He is still on vancomycin. All of these could probably be stopped about Saturday. 07/30/2016 patient is feeling better. Diarrhea is much better. Creatinine has risen. We will stop vancomycin. We have not had any cultures that would make us continue that. 07/31/2016 patient remains afebrile. Has acute kidney injury. Has persistently elevated white blood count. He is less short of breath and requiring less oxygen. Chest x-ray today still shows some bibasilar atelectasis. He is now just on Diflucan. All other antibiotics have been stopped. I think that is reasonable for now. Exam (Progress Note) - Constitutional Vitals: Period Temp Pulse Resp BP Sys/Guaman Pulse Ox Last 24 Hr 98.3 F-98.9 F 90-105 17- 134-159/73-88 93-99 Exam: He is alert, vital signs normal. Pupils react to light. Throat is clear. Neck supple no bruits. Wearing Ventimask. Chest reveals some mild bibasilar rales. Otherwise clear. Heart normal rate rhythm no murmurs. Abdomen is not tender, soft, he does have bowel sounds. Extremities no clubbing cyanosis, trace of edema. Results - Labs CBC & BMP: 07/30/16 06:10 07/30/16 06:10 Lab Results: I have reviewed the past 24 hour labs - Diagnostic Findings Procedure: Chest x-ray: image reviewed by me (Left basilar infiltrate, right basilar atelectatic band. Slightly improved from previous.) Assessment and Plan (1) Pneumonia of both lower lobes Status: Acute Assessment and plan: CT scan shows air bronchograms and consolidation in both lower lobes consistent with pneumonia. Certainly atelectasis related to his pancreatitis may be playing a part as well. He has small pleural effusions too small to tap. He is on Merrem which should be good for lower lobe pneumonia. 07/24/2016 continuing with empiric antibiotics. 07/26/2016 continuing empiric antibiotics. Having diarrhea. Check for C. difficile. 07/27/2016 clinically better from pneumonia. Stools for C. difficile have been negative but patient is still having some diarrhea. Trying to cut back on total antibiotic load. Watch renal function on vancomycin blood cultures have been negative. Low-grade fever may be from this but more likely from his pancreatitis. 07/30/2016 clinically improved. Recheck x-ray tomorrow. Stop vancomycin due to worsening renal function. Still on Rocephin. 07/31/2016 he has completed a full course of antibiotics. Agree with stopping the Rocephin. Follow white blood count. Current Visit: Yes (2) Acute pancreatitis Status: Acute Assessment and plan: Defer to GI. Symptoms seem to be a little better. We may be getting a little ahead on fluids. 07/24/2016 lipase has come down. Less abdominal pain. 07/26/2016 lipase continues to fall. Taking some liquids by mouth. 07/27/2016 abdominal pain has subsided. Progressing with liquid diet. 07/30/2016 clinically improved. 07/31/2016 he is eating and drinking but gets full easily. No abdominal pain. Current Visit: Yes (3) Poorly-controlled hypertension Status: Acute Assessment and plan: Needs additional blood pressure medications. We will add labetalol. 07/24/2016 blood pressure looks a little better. 07/26/2016 blood pressure improved. 07/27/2016 blood pressure better control now. 155/80 today. 07/30/2016 blood pressure looks okay. 07/31/2016 blood pressures much better control. Current Visit: Yes (4) Tracheal deviation Status: Acute Assessment and plan: I do not see a mass in his substernal area. He may have some substernal thyroid. Await interpretation from radiologist. 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 Current Visit: Yes
[2016-07-31 07:56] LABS: Osmolality,Calculated 287.3 MOS/KG (273-304); Potassium 4.1 MMOL/L (3.5-5.1)
--- NOTE | 2016-07-31 08:09 | Oncology Consult Note ---
History of Present Illness Chief complaint: Leukocytosis History of present illness: Mr. Cabral is a 50 year old male who was admitted with pancreatitis. He has persistent leukocytosis. I have ordered a leukocyte alkaline phosphatase but there may be a newer test available. A leukocyte alkaline phosphatase is not available as a routine order on this electronic medical record. The patient has documented evidence of pancreatitis on CT of the abdomen and pelvis. His pancreas is enlarged. It is my opinion presently that this is a leukemoid reaction due to the pancreatitis and that it will gradually clear. However, I am ordering a CA-19- 9 and a CEA level. In addition I am ordering a CRP. The patient still has tightness in his abdomen and says that he is unable to take a deep breath because of chest tightness. On questioning him, he gives no prior history of blood dyscrasias or bleeding disorders. - Medical History Allergies: No known allergies Cardio: History of: Hypertension Genitourinary: History of: Prostate Problems Gastrointestinal: History of: Pancreatitis - Social History Smoking Status: Current every day smoker in the amount of about 10 cigarettes daily Frequency of Alcohol Use: Rarely Type of Drug Use: None - Constitutional Constitutional: Absent: daytime sleepiness, headache(s), stops breathing during sleep, weakness - EENT Eyes: Absent: blurry vision, loss of vision Ears: Absent: decreased hearing, ear pain Nose, mouth and throat: Absent: dysphagia, epistaxis, headache(s), neck pain, sore throat - Cardiovascular Cardiovascular: Absent: chest pain at rest, dyspnea, edema, lightheadedness, palpitations - Respiratory Respiratory: Absent: cough, dyspnea, hemoptysis, wheezing - Gastrointestinal Gastrointestinal: Present: abdominal pain, nausea, vomiting. Absent: constipation - Genitourinary Genitourinary: Absent: difficulty urinating, flank pain - Neurological Neurological: Present: abnormal speech (slurred speech). Absent: abnormal gait - Psychiatric Psychiatric: Absent: anxiety, confusion - Endocrine Endocrine: Absent: cold intolerance, fatigue, polyuria Physical examination: General: The patient is well-developed, well-nourished and in no acute distress except that he is morbidly obese. Eyes: Normal lids and conjunctivae. ENT: His hearing is normal. His oral mucosa and pharynx are normal. His trachea is midline and he has no neck masses. Nodes: There is no cervical, supraclavicular, axillary or submandibular adenopathy. Lungs: Breath sounds are slightly coarse and he has dependent rales bilaterally in the posterior bases. These are fine and faint. Cardiovascular: His heart rhythm is regular without murmur, gallop or rub. There is no jugular venous distention, clubbing, cyanosis or edema. Abdomen: He may have some mild abdominal tenderness in the epigastric area. I cannot palpate any definite masses or organomegaly. I do not think he has ascites. Musculoskeletal: There is no focal muscle atrophy or bone or joint deformity. Neurologic: Cranial nerves II through XII are intact. There are no focal neurologic deficits. Psychiatric: The patient appears to be oriented to time, place, person and situation. Skin: I see no significant rashes. He does have loss of the leg and use of his fingernails. Impression: I think this is going to be a leukemoid reaction due to the patient' s pancreatitis. I have ordered a CEA level as well as a CA-19-9. I have also attempted to order a leukocyte alkaline phosphatase although the lab and this computer may not recognize that test. I have ordered a CRP as well. He will require follow-up of his pancreatitis, including follow-up with a engineer third assistant and a repeat CT scan at some point. Thank you for consulting me. Home Medications Medication Instructions Recorded Confirmed Type Aspirin [Ecotrin] 81 mg PO DAILY 07/21/16 07/21/16 History Atenolol [Tenormin] 200 mg PO DAILY 07/21/16 07/21/16 History Lisinopril [Zestril] 40 mg PO DAILY 07/21/16 07/21/16 History Tamsulosin [Flomax] 0.4 mg PO DAILY 07/21/16 07/21/16 History hydroCHLOROthiazide 25 mg PO DAILY 07/21/16 07/21/16 History [Hydrochlorothiazide] Allergies Allergy/AdvReac Type Severity Reaction Status Date / Time No Known Allergies Allergy Unverified 07/21/16 06:49 Medical,Surgical,& Family Hx - Medical History Cardio: History of: Hypertension Genitourinary: History of: Prostate Problems Gastrointestinal: History of: Pancreatitis - Social History Smoking Status: Current every day smoker Frequency of Alcohol Use: Rarely Type of Drug Use: None Exam - Constitutional Vitals: Period Temp Pulse Resp BP Sys/Guaman Pulse Ox Last 24 Hr 98.3 F-98.9 F 90-105 17- 134-159/73-88 93-99 Results - Labs CBC & BMP: 07/30/16 06:10 07/31/16 05:10
[2016-07-31] MEDS: amLODIPine 10 MG TABLET PO SCH (08:22)
[2016-07-31] MEDS: LABETALOL 200 MG TABLET PO SCH (08:22)
[2016-07-31] MEDS: LOPERAMIDE 2 MG CAPSULE PO PRN (08:23)
[2016-07-31] MEDS: FLUCONAZOLE 200 MG TABLET PO SCH (08:23)
[2016-07-31] MEDS: INSULIN REGULAR 100 UNIT/ML SUBCUT SCH ×3 (08:23→15:49)
[2016-07-31] MEDS: PANTOPRAZOLE 40 MG VIAL IV SCH (08:23)
--- NOTE | 2016-07-31 08:26 | Gastrointestinal Progress Note ---
<Mariola Rahman Maico - Last Filed: 07/31/16 08:24> Assessment and Plan (1) Acute pancreatitis Status: Acute Assessment and plan: 07/31-No abd pain. Tolerating diet with fair appetite. Diarrhea at 2 stools daily. WBC 32. Afebrile. Plan and addendum to follow by Dr Kirby. 07/30-Denies abdominal pain. Tolerating diet well. Diarrhea is improved. Negative stool studies. Plan and addendum to follow by Dr Kirby. 07/27-No c/o pain. Tolerating diet at present time. Having continued loose stools , negative stool studies. Plan and addendum to follow by Dr Kirby. 07/26-Abd pain improved, no N/V. LFT normal and bilirubin down at 1.5. Having frequent loose stools. Repeat stool for C. diff and will order stool studies. Plan and addendum to follow by Dr Kirby. 07/25-No changes at present time. Repeat LFT and lipase today. Continue to monitor. Plan and addendum to follow by Dr Kirby. 07/24-abdominal pain improved. Lipase levels and LFTs continue to trend downward. Respiratory status improving. Plan and addendum to follow by Dr. Kirby 07/23-abdominal pain slightly improved. Lipase levels trending down. LFTs trending down. Ultrasound findings noted. Findings of pneumonia noted today with pulmonary consult done. Plan an addendum to followed by Dr. Kirby. Current Visit: Yes Gastroenterology - PN: Subj Interval history: CC: Abd pain, pancreatitis Pt is seen, awake and alert sitting up in bed. States he did rest well overnight. Denies any abdominal pain, nausea or vomiting. He is tolerating his diet well but states he can only eat a little bit at a time due to his appetite has not rebounded yet. He is still having two loose stools per day but this is improved at this time. Abdomen is soft, nontender. Dr Alvarez has consulted regarding his leukocytosis. He has ordered further labwork. Chest xray still shows no changes at present from 4 days ago. ROS: Denies SOB or chest pain Exam (Progress Note) - Constitutional Vitals: Period Temp Pulse Resp BP Sys/Guaman Pulse Ox Last 24 Hr 98.3 F-98.9 F 90-105 17- 134-159/73-88 93-99 General appearance: normal weight, no acute distress - Head Head exam: Present: normal inspection, normocephalic - Eye Eye exam: Present: other (lids and conjunctiva unremarkable). Absent: scleral icterus - ENT ENT exam: Present: normal exam, normal oropharynx - Neck Neck exam: Present: normal inspection - Respiratory Respiratory exam: Present: clear to auscultation bilaterally. Absent: rales, rhonchi, wheezes - Cardiovascular Cardiovascular exam: Present: regular rate and rhythm. Absent: diastolic murmur , JVD, systolic murmur - GI/Abdominal GI/Abdominal exam: Present: normal bowel sounds, soft. Absent: ascites, distended, mass, organomegaly, tenderness - Extremities Exam Extremities exam: Present: normal inspection, full ROM - Back Exam Back exam: Present: normal inspection - Neurological Exam Neurological exam: Present: alert, oriented X3 - Psychiatric Psychiatric exam: Present: normal affect, normal mood - Skin Skin exam: Present: normal color, warm, dry Results - Labs CBC & BMP: 07/30/16 06:10 07/31/16 05:10 Lab Results: I have reviewed the past 24 hour labs Specialty Discharge - Follow Up or Referrals Follow up with: Dr Abhishek [Other] - 2 Weeks (in [facility]) Jemal Alvarez MD [Physician] - 2 Weeks Valentina Cruz MD [Physician] - 2 Weeks (severe darius ) Matthew Renteria Jr., MD [Physician] - 1 Week <Ever Kirby - Last Filed: 07/31/16 12:48> Exam (Progress Note) - Constitutional Vitals: Period Temp Pulse Resp BP Sys/Guaman Pulse Ox Last 24 Hr 98.1 F-98.9 F 90-105 17- 148-159/76-88 93-100 Results - Labs CBC & BMP: 07/30/16 06:10 07/31/16 05:10
--- NOTE | 2016-07-31 11:38 | Discharge Summary ---
Hospital Course - Hospital Course Hospital Course: Mr. Cabral is a 50 year old -[place] male with a history significant for hypertension who reports to the ED as a transfer from [facility] with diffuse abdominal pain. CT of the abdomen showed extensive pancreatitis. Dr. Rojas was consulted and feels that his pancreatitis was secondary to hydrochlorothiazide. Gallbladder ultrasound does show cholelithiasis but no obstructing stone was noted. Patient also has hyperglycemia and whether this contributed to his pancreatitis is unknown. His hemoglobin A1c was only 5.7 however his blood sugars have been poorly controlled despite Lantus 35 units daily. Patient's lipase was 6651 on admission which resolved coming down to a normal lipase of 227 on 07/25/2016. Patient has received diabetic education. His blood pressure medicines have been modified. Patient developed pneumonia bilaterally. He was placed on azithromycin vancomycin and Teflaro at that time. His pneumonia improved but his renal failure worsened. Patient's creatinine on admission was 1.60 but worsened to 2.5. Dr. Renteria was consulted and feels that the worsening renal failure was partially secondary to the CT contrast used to diagnosis pancreatitis plus diuresis which was to help with his bilateral pleural effusions that he developed as a result of the pancreatitis. Patient's white counts continued to climb despite adequate treatment with antibiotics. He also developed diarrhea but was C. difficile negative 2. His C-reactive protein is still high but his CA 19-9 and his CEA level were normal. Dr. Alvarez has seen him and believes that his white count should improve with time. Dr. Barnett feels he has had adequate treatment of his pneumonia and has suggested stopping all antibiotics. Despite his negative C. difficile I want to give him 10 days of p.o. Flagyl. Patient is 50 years old he does not hold a job and still lives with his parents. We will have to check on his resources to afford his medicines. Patient does have prostate issues as he has been on Flomax before he was admitted. We have restarted this on discharge but it was not restarted on admission. Will do a postvoid residual just to make sure that this is contributing to his worsening creatinine. Patient's room air sat was adequate however when he got up to move around his sats dropped. He has clear evidence of atelectasis. He says he cannot afford oxygen but we will contact his family to see what resources they have. His need for oxygen should be limited. I do not think breathing treatments will help. He also has severe obstructive sleep apnea but without insurance will not get a sleep study. Patient will be discharged home today to follow-up with his primary doctor Dr. Weiss, Dr. Alvarez, Dr. Renteria in Dr. Valentina Cruz. I encouraged him to apply for Medicaid in order to have some assistance with his medications. At some point when his inflammation has completely resolved he will need to have his gallbladder out and has the stones in his gallbladder could easily become lodged in his pancreas causing pancreatitis again but surgery is not going to agree to touch it until his white count resolves. - Time spent with patient Time with patient DS: Greater than 30 minutes (60 min) Diagnosis - Discharge Diagnosis (1) Acute pancreatitis Status: Acute (2) Poorly-controlled hypertension Status: Acute (3) Insulin dependent diabetes mellitus Status: Acute (4) Pneumonia of both lower lobes Status: Acute (5) Acute kidney injury Status: Acute (6) Hypokalemia Status: Acute (7) Diarrhea Status: Acute (8) Leukocytosis Status: Acute (9) Sharon UTI Status: Acute Discharge Plan - Discharge Data Disposition: Disch To Home/Self Care Condition at Discharge: Stable Discharge Diet: diabetic diet Activity: resume usual activities as tolerated Hygiene: no restrictions Weight Bearing at Discharge: full weight bearing - Discharge Medications New Labetalol Tab [Trandate Tab] 200 mg PO BID #60 tablet Loperamide Cap [Imodium Cap] 2 mg PO Q4H PRN #20 capsule PRN Reason: Diarrhea metroNIDAZOLE TAB [Flagyl Cap/Tab] 500 mg PO TID #30 tablet amLODIPine [Norvasc] 10 mg PO DAILY #30 tablet Insulin NPH/Regular 70/30 [HumuLIN 70/30] 35 unit SUBCUT BID #10 ml Continue Fluconazole Tab [Diflucan Tab] 200 mg PO DAILY #5 tablet Tamsulosin [Flomax] 0.4 mg PO DAILY Discontinued Atenolol [Tenormin] 200 mg PO DAILY Lisinopril [Zestril] 40 mg PO DAILY Aspirin [Ecotrin] 81 mg PO DAILY hydroCHLOROthiazide [Hydrochlorothiazide] 25 mg PO DAILY - Follow Up or Referral Follow Up: Dr Abhishek [Other] - 2 Weeks (in [facility]) Matthew Renteria Jr., MD [Physician] - 1 Week Jemal Alvarez MD [Physician] - 2 Weeks Valentina Cruz MD [Physician] - 2 Weeks (severe darius ) - Forms/Instructions Additional Discharge Instructions: diabetic education before leaving he needs insulin. oxygen to keep saturation greater than 88%, 2 liters nc Exam - Constitutional Vitals: Period Temp Pulse Resp BP Sys/Guaman Pulse Ox Last 24 Hr 98.1 F-98.9 F 90-105 17-25 134-159/73-88 93-100 General appearance: no acute distress, morbidly obese - Respiratory Respiratory exam: Present: clear to auscultation bilaterally, decreased breath sounds. Absent: rales, wheezes - Cardiovascular Cardiovascular exam: Present: regular rate and rhythm. Absent: systolic murmur - GI/Abdominal GI/Abdominal exam: Present: normal bowel sounds, soft. Absent: tenderness - Extremities Exam Extremities exam: Present: edema Discharge Results Procedures and tests throughout hospitalization: Pending Orders 07/30/16 07:21 Blood Culture Stat Labs on day of discharge: Labs from last 24 hours 07/31/16 07/31/16 07/31/16 11:17 08:20 07:15 Sodium Potassium Chloride Carbon Dioxide Anion Gap BUN Creatinine GFR Calculation BUN/Creatinine Ratio Glucose POC Glucose 257 H 211 H Calculated Osmolality Calcium C-Reactive Protein 21.90 H Carcinoembryonic Ag CA 19-9 Antigen 07/31/16 07/31/16 07/30/16 05:10 05:10 20:35 Sodium 141 Potassium 4.1 Chloride 106 Carbon Dioxide 18 L Anion Gap 21.1 H BUN 21 H Creatinine 3.40 H GFR Calculation 35 BUN/Creatinine Ratio 6.00 Glucose 165 H POC Glucose 223 H Calculated Osmolality 287.3 Calcium 8.0 L C-Reactive Protein Carcinoembryonic Ag < 0.0 L CA 19-9 Antigen 4.0 07/30/16 07/30/16 15:37 11:36 Sodium Potassium Chloride Carbon Dioxide Anion Gap BUN Creatinine GFR Calculation BUN/Creatinine Ratio Glucose POC Glucose 217 H 259 H Calculated Osmolality Calcium C-Reactive Protein Carcinoembryonic Ag CA 19-9 Antigen Preliminary micro results at discharge 07/30/16 07:21 Blood Culture - Preliminary Blood No growth at 1 day 07/30/16 07:21 Blood Culture - Preliminary Blood No growth at 1 day DS: Provider Date of admission: 07/21/16 09:19 Primary care physician: . 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 Consult Comment: give him insulin education 07/23/16 10:09 Consult to Physician [CONS] Routine Comment: short of breath Consulting Provider: Jose M Barnett Consulting Provider Notified: Yes Consult to Specialist Group: Pulmonology Person Notified: ETHAN Date Notified: 07/23/16 Time Notified: 10:50 07/25/16 11:18 Consult to Occupational Therapy [CONS] Routine Reason for Occupational Therapy: Evaluate and Treat Consult to Physical Therapy [CONS] Routine Reason for Physical Therapy: Evaluate and Treat 07/25/16 12:49 Consult to Pharmacy [CONS] Routine Reason for Pharmacy Consult: Dose/Manage Antibiotics Comment: please adjust antibiotic doses for renal disease 07/26/16 07:55 Consult to Dietitian [CONS] Routine Reason for Dietitian: Dietary Consult 07/29/16 07:51 Consult to Physician [CONS] Routine Comment: Consulting Provider: Matthew Renteria Jr. Person Notified: MD muñiz 07/30/16 11:29 Consult to Physician [CONS] Routine Comment: persistent elevated wbc despite improving pneumoni Consulting Provider: Jemal Alvarez When should Consulting Provider be notified: Now Person Notified: MIGUEL Date Notified: 07/30/16 Time Notified: 11:35 Discharging clinician: Jaimee iDllard MD
--- NOTE | 2016-07-31 11:50 | Nephrology Progress Note ---
Nephrology - PN: Subj Interval history: Patient is resting comfortably no acute changes. Serum creatinine noted to be 3.4. Slight increase from yesterday but continuing to encourage patient to drink plenty of fluids. Should patient be discharged today he will follow me in 1 week with a BMP. Exam (PN)-Nephrology - Vital Signs Vital signs: Period Temp Pulse Resp BP Sys/Guaman Pulse Ox Last 24 Hr 98.1 F-98.9 F 90-105 17-25 134-159/73-88 93-100 - General Appearance General appearance: well-developed, well-nourished EENT: ATNC Neck: supple Respiratory: clear Gastrointestinal: normoactive bowel sounds Neurologic: alert and oriented x3, CN 3-12 intact Musculoskeletal: no clubbing Psychiatric: mood/affect appropriate - Lab 07/30/16 06:10 07/31/16 05:10 Most recent lab results ABG pH 7.406 (7.35-7.45) 07/27/16 13:24 ABG pCO2 30.2 MM HG (35-48) L 07/27/16 13:24 ABG pO2 68.6 MM HG (80-95) L 07/27/16 13:24 ABG HCO3 20.5 MMOL/L (20-26) 07/27/16 13:24 ABG O2 Saturation 93.2 % (95-100) L 07/27/16 13:24 Calcium 8.0 MG/DL (8.5-10.1) L 07/31/16 05:10 Assessment and Plan (1) Acute pancreatitis Status: Acute Assessment and plan: This appears to be improving. Current Visit: Yes (2) Poorly-controlled hypertension Status: Acute Assessment and plan: Blood pressure is stable. Current Visit: Yes (3) Leukocytosis Status: Acute Current Visit: Yes (4) Acute kidney injury Status: Acute Current Visit: Yes (5) Diabetes mellitus Status: Acute Current Visit: Yes (6) Acute kidney injury Status: Acute Assessment and plan: Appears to be multifactorial. Hypertension, diabetes, IV contrast study. Continue to watch for renal recovery. Patient can follow with me in 1 week post discharge with a BMP. Current Visit: Yes Specialty Discharge - Follow Up or Referrals Follow up with: Dr Abhishek [Other] - 2 Weeks (in [facility]) Jemal Alvarez MD [Physician] - 2 Weeks Valentina Cruz MD [Physician] - 2 Weeks (severe darisu ) Matthew Renteria Jr., MD [Physician] - 1 Week
[2016-07-31 13:32] VITALS: BP 164/83
[2016-07-31] MEDS: ENOXAPARIN 40 MG/0.4 ML SYRINGE SUBCUT SCH (15:49)
[2016-08-01 04:33] LABS: Carcinoembryonic Antigen < 0.5 NG/ML (0.0-5.0)
== END 2016-07-31 18:13 | disposition home or self-care (01) | DRG 438 ==
LOC: N.ED 06:45 → SUATTDRO 09:19 → N.EDINP 09:19 → N.2E 09:25 → N.ICU 11:37 → N.5E 07-24 14:33
PROVIDERS: ADMIT Internal Medicine; ATTEND Internal Medicine